=== PATIENT | female | born 1975 | race Caucasian/White ===

== ENCOUNTER 2016-12-20 18:54 | Observation (INO) | payer OTHER ==
[2016-12-20] MEDS ORDERED: ASPIRIN 81 MG PO STA (19:16)
[2016-12-20] MEDS ORDERED: SODIUM CHLORIDE 0.9% 1,000 ML IV STA (19:16)
[2016-12-20] MEDS ORDERED: NITROGLYCERIN SL TABS 0.4 MG TAB SUBLINGUAL STA ×3 (19:16)
--- NOTE | 2016-12-20 19:21 | ED ---
General Adult HPI - General Chief complaint: Chest Pain Stated complaint: Chest Pain Time Seen by Provider: 12/20/16 19:10 Source: patient, EMS, RN notes reviewed Mode of arrival: EMS Limitations: no limitations - History of Present Illness Initial comments: Patient is a pleasant 41-year-old female presenting to the emergency Department with chest discomfort. 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 Patient states she just started and was doing light exertion. Patient has tightness with radiation to the left arm. Discomfort is moderate to severe. Patient does feel somewhat short of breath. No nausea or diaphoresis. No history of similar symptoms previously. - Related Data Home Medications Medication Instructions Recorded Confirmed Acetaminophen Tab [Tylenol Tab] 325 - 650 mg PO Q4H PRN 12/20/16 12/20/16 Albuterol Inhaler [Ventolin Hfa 1 puff INHALATION RT-Q6H PRN 12/20/16 12/20/16 Inhaler] Allergies Allergy/AdvReac Type Severity Reaction Status Date / Time latex Allergy Rash/Hives Verified 12/20/16 19:17 Review of Systems ROS Statement: Those systems with pertinent positive or pertinent negative responses have been documented in the HPI. ROS Other: All systems not noted in ROS Statement are negative. Constitutional: Denies: fever Eyes: Denies: eye pain ENT: Denies: ear pain Respiratory: Reports: dyspnea. Denies: cough Cardiovascular: Reports: chest pain Endocrine: Denies: fatigue Gastrointestinal: Denies: abdominal pain Genitourinary: Denies: dysuria Musculoskeletal: Denies: back pain Skin: Denies: rash Neurological: Denies: headache, weakness Past Medical History Past Medical History: Asthma Additional Past Medical History / Comment(s): vertigo History of Any Multi-Drug Resistant Organisms: None Reported Past Surgical History: Hysterectomy, Orthopedic Surgery Additional Past Surgical History / Comment(s): right below elbow amputation, part of tailbone removed, three knee surgeries, teeth removed Past Psychological History: No Psychological Hx Reported Smoking Status: Current every day smoker Past Alcohol Use History: Rare Past Drug Use History: Marijuana General Exam Limitations: no limitations General appearance: alert, in no apparent distress Head exam: Present: atraumatic, normocephalic Eye exam: Present: normal appearance, PERRL, EOMI. Absent: nystagmus ENT exam: Present: normal oropharynx Neck exam: Present: normal inspection Respiratory exam: Present: normal lung sounds bilaterally, chest wall tenderness (Mild) Cardiovascular Exam: Present: regular rate, normal rhythm Expanded Peripheral pulses: 2+: Radial (L), Posterior Tibialis (R), Posterior Tibialis (L ) GI/Abdominal exam: Present: soft. Absent: tenderness Extremities exam: Present: other (Right arm below elbow amputation). Absent: calf tenderness Back exam: Present: normal inspection Neurological exam: Present: alert Psychiatric exam: Present: normal affect, normal mood Skin exam: Present: normal color Course Vital Signs 12/20/16 12/20/16 12/20/16 19:01 19:40 19:45 Temperature 98.3 F Pulse Rate 56 L 50 L 89 Respiratory 20 16 Rate Blood Pressure 101/61 93/56 106/57 O2 Sat by Pulse 99 98 98 Oximetry 12/20/16 20:25 Temperature Pulse Rate 52 L Respiratory 18 Rate Blood Pressure 111/58 O2 Sat by Pulse 100 Oximetry EKG Findings - EKG Comments: EKG Findings:: Sinus bradycardia 51. SD 104. QRS 98. QT 452. QTC 416. Right axis. Normal QRS. No acute ST change. Medical Decision Making - Medical Decision Making Patient reevaluated. Patient still complains of discomfort. Patient updated on results and plan. Patient will be tried on Ativan. If symptoms continue patient will be given a dose of morphine. Case discussed in detail with Dr. Jefferson, who will admit his patient, no consults at this time. - Lab Data Result diagrams: 12/20/16 19:00 12/20/16 19:00 Lab Results 12/20/16 12/20/16 12/20/16 Range/Units 19:00 19:00 19:00 WBC 9.3 (3.8-10.6) k/uL RBC 3.95 (3.80-5.40) m/uL Hgb 13.2 (11.4-16.0) gm/dL Hct 39.3 (34.0-46.0) % MCV 99.3 (80.0-100.0) fL MCH 33.4 (25.0-35.0) pg MCHC 33.7 (31.0-37.0) g/dL RDW 12.5 (11.5-15.5) % Plt Count 249 (150-450) k/uL Neutrophils % 67 % Lymphocytes % 29 % Monocytes % 2 % Eosinophils % 1 % Basophils % 0 % Neutrophils # 6.2 (1.3-7.7) k/uL Lymphocytes # 2.7 (1.0-4.8) k/uL Monocytes # 0.2 (0-1.0) k/uL Eosinophils # 0.1 (0-0.7) k/uL Basophils # 0.0 (0-0.2) k/uL PT (9.0-12.0) sec INR (<1.2) APTT (22.0-30.0) sec D-Dimer (<0.60) mg/L FEU Sodium 139 (137-145) mmol/L Potassium 3.6 (3.5-5.1) mmol/L Chloride 109 H (98-107) mmol/L Carbon Dioxide 20 L (22-30) mmol/L Anion Gap 10 mmol/L BUN 18 H (7-17) mg/dL Creatinine 0.50 L (0.52-1.04) mg/dL Est GFR (MDRD) Af Amer >60 (>60 ml/min/1.73 sqM) Est GFR (MDRD) Non-Af >60 (>60 ml/min/1.73 sqM) Glucose 82 (74-99) mg/dL Calcium 9.5 (8.4-10.2) mg/dL Magnesium 2.0 (1.6-2.3) mg/dL Total Bilirubin 1.0 (0.2-1.3) mg/dL AST 21 (14-36) U/L ALT 33 (9-52) U/L Alkaline Phosphatase 53 (38-126) U/L Total Creatine Kinase 103 (30-135) U/L CK-MB (CK-2) 2.3 (0.0-2.4) ng/mL CK-MB (CK-2) Rel Index 2.2 Troponin I <0.012 (0.000-0.034) ng/mL Total Protein 6.6 (6.3-8.2) g/dL Albumin 4.4 (3.5-5.0) g/dL 12/20/16 Range/Units 19:00 WBC (3.8-10.6) k/uL RBC (3.80-5.40) m/uL Hgb (11.4-16.0) gm/dL Hct (34.0-46.0) % MCV (80.0-100.0) fL MCH (25.0-35.0) pg MCHC (31.0-37.0) g/dL RDW (11.5-15.5) % Plt Count (150-450) k/uL Neutrophils % % Lymphocytes % % Monocytes % % Eosinophils % % Basophils % % Neutrophils # (1.3-7.7) k/uL Lymphocytes # (1.0-4.8) k/uL Monocytes # (0-1.0) k/uL Eosinophils # (0-0.7) k/uL Basophils # (0-0.2) k/uL PT 11.6 (9.0-12.0) sec INR 1.2 H (<1.2) APTT 25.5 (22.0-30.0) sec D-Dimer <0.17 (<0.60) mg/L FEU Sodium (137-145) mmol/L Potassium (3.5-5.1) mmol/L Chloride (98-107) mmol/L Carbon Dioxide (22-30) mmol/L Anion Gap mmol/L BUN (7-17) mg/dL Creatinine (0.52-1.04) mg/dL Est GFR (MDRD) Af Amer (>60 ml/min/1.73 sqM) Est GFR (MDRD) Non-Af (>60 ml/min/1.73 sqM) Glucose (74-99) mg/dL Calcium (8.4-10.2) mg/dL Magnesium (1.6-2.3) mg/dL Total Bilirubin (0.2-1.3) mg/dL AST (14-36) U/L ALT (9-52) U/L Alkaline Phosphatase (38-126) U/L Total Creatine Kinase (30-135) U/L CK-MB (CK-2) (0.0-2.4) ng/mL CK-MB (CK-2) Rel Index Troponin I (0.000-0.034) ng/mL Total Protein (6.3-8.2) g/dL Albumin (3.5-5.0) g/dL - Radiology Data Radiology results: image reviewed (Chest x-ray shows no acute process) Disposition Clinical Impression: Chest pain Disposition: ADMITTED IP TO THIS [facility] Referrals: Placido Jefferson MD [Primary Care Provider] - 1-2 days Decision Time: 20:53
[2016-12-20 19:44] LABS: Basophils % (A) 0 %; CH 32.6; Eosinophils # (A) 0.1 k/uL (0-0.7); Eosinophils % (A) 1 %; HCT 39.3 % (34.0-46.0); HGB 13.2 gm/dL (11.4-16.0); Luc # (Auto) 0.07; Luc % (Auto) 1; Lymphocytes # (A) 2.7 k/uL (1.0-4.8); Lymphocytes % (A) 29 %; MCH 33.4 pg (25.0-35.0); MCHC 33.7 g/dL (31.0-37.0); MCV 99.3 fL (80.0-100.0); Mean Platelet Volume 8.3; Monocytes # (A) 0.2 k/uL (0-1.0); Monocytes % (A) 2 %; Neutrophils # (A) 6.2 k/uL (1.3-7.7); Neutrophils % (A) 67 %; RBC 3.95 m/uL (3.80-5.40); RDW 12.5 % (11.5-15.5); WBC 9.3 k/uL (3.8-10.6); WBC (Perox) 9.75
[2016-12-20 19:54] LABS: ALT 33 U/L (9-52); AST 21 U/L (14-36); Alkaline Phosphatase 53 U/L (38-126); Anion Gap 10 mmol/L; Blood Urea Nitrogen 18 mg/dL (7-17); Calcium 9.5 mg/dL (8.4-10.2); Carbon Dioxide 20 mmol/L (22-30); Chloride 109 mmol/L (98-107); Glucose 82 mg/dL (74-99); Non-African American GFR(MDRD) >60 (>60 ml/min/1.73 sqM); Potassium 3.6 mmol/L (3.5-5.1); Sodium 139 mmol/L (137-145); Total Protein 6.6 g/dL (6.3-8.2)
[2016-12-20 19:55] LABS: INR 1.2 (<1.2); Partial Thromboplastin Time 25.5 sec (22.0-30.0); Prothrombin Time 11.6 sec (9.0-12.0)
[2016-12-20 19:59] LABS: Creatine Kinase 103 U/L (30-135)
--- NOTE | 2016-12-20 20:10 | XR ---
EXAMINATION TYPE: XR chest 2V DATE OF EXAM: 12/20/2016 COMPARISON: 08/13/2008 HISTORY: Chest pain TECHNIQUE: Frontal and lateral views of the chest are obtained. FINDINGS: Heart and mediastinum are normal. Lungs are clear. Diaphragm is normal. Bony thorax is int act. There are chest leads. IMPRESSION: Normal chest. No change.
[2016-12-20 20:12] LABS: Creatine Kinase MB 2.3 ng/mL (0.0-2.4); Troponin I <0.012 ng/mL (0.000-0.034)
[2016-12-20] MEDS ORDERED: LORazepam 2 MG/ML INJ IV STA (20:47)
[2016-12-20] MEDS ORDERED: NITROGLYCERIN SL TABS 0.4 MG TAB SUBLINGUAL PRN (20:53)
[2016-12-20 21:10] VITALS: RESP 16
[2016-12-20 21:46] VITALS: BMI 16.1
[2016-12-20] MEDS ORDERED: ALBUTEROL NEBULIZED 2.5 MG/3 ML INHALATION PRN (22:24)
[2016-12-20] MEDS: traMADol 50 MG TAB PO PRN (22:31)
[2016-12-21] MEDS: NITROGLYCERIN OINT 1 INCH/GM PACKET TOPICAL SCH ×3 (00:24→13:22)
[2016-12-21 02:39] LABS: Creatine Kinase 69 U/L (30-135)
[2016-12-21 02:50] LABS: Cholesterol 130 mg/dL (<200); HDL Cholesterol 61 mg/dL (40-60)
[2016-12-21 02:52] LABS: Creatine Kinase MB 1.4 ng/mL (0.0-2.4); Troponin I <0.012 ng/mL (0.000-0.034)
[2016-12-21] MEDS: traMADol 50 MG TAB PO PRN (06:06)
[2016-12-21] MEDS: ONDANSETRON 4 MG/2 ML VIAL IVP PRN ×2 (06:23→13:19)
[2016-12-21 07:56] LABS: Creatine Kinase 61 U/L (30-135)
[2016-12-21 08:01] VITALS: BP 81/50; PULSE 41; TEMP 97.8
[2016-12-21 08:09] LABS: Creatine Kinase MB 1.3 ng/mL (0.0-2.4); Troponin I <0.012 ng/mL (0.000-0.034)
[2016-12-21] MEDS ORDERED: ASPIRIN 325 MG TAB PO SCH (09:00)
--- NOTE | 2016-12-21 20:49 | HP ---
HISTORY AND PHYSICAL CHIEF COMPLAINT: Chest pain. HISTORY OF PRESENT ILLNESS: This is another admission for this 41-year-old white female. She presented to the emergency room with chest pain which was atypical. It was in the upper sternal area and it was tender. She had no fever, chills, cough, hemoptysis, diaphoresis, orthopnea, PND, etc. She did feel dizzy and "scared." Her left arm went "numb." She did become a little bit nauseated but did not throw up. Enzymes in the emergency room were normal as was the EKG. REVIEW OF SYSTEMS: Otherwise unremarkable. PAST MEDICAL HISTORY, FAMILY HISTORY AND PERSONAL AND SOCIAL HISTORY: Unremarkable and noncontributory otherwise except that she has had her right arm amputated in the mid forearm area. She has had a hysterectomy and procedure on the right knee as well as ovarian cystectomy. She has also had a procedure on her back. She does smoke. She is allergic to no medication and she is not current on any. PHYSICAL EXAM: Blood pressure is 138/86, pulse 80, respirations 16. She is afebrile. GENERAL: She , well-developed, well-nourished in no acute distress. Skin color is normal. Skin is warm, dry. Lymph nodes are not enlarged. Head ears, eyes, nose, mouth, and throat are normal. Neck veins distended. Thyroid not enlarged. Chest is clear. Cardiac exam is normal. The abdomen is soft, nontender. Extremities normal. She was tender over the sternum and the costochondral junctions. Neurologically she is intact. The right distal forearm and hand were missing. IMPRESSION: 1. Atypical chest pain. 2. Costochondritis. 3. Status post right forearm amputation. PLAN: 1. Bed rest. 2. IV fluids. 3. Serial EKGs and enzymes. MMODL / IJN: [id number] /
--- NOTE | 2016-12-22 08:58 | DS ---
DISCHARGE SUMMARY CHIEF COMPLAINT: Chest pain. HISTORY OF PRESENT ILLNESS AND PHYSICAL EXAMINATION: The details of this lady's history and physical can be found in the initial workup. LABORATORY STUDIES: While she was in the hospital she had laboratory studies, details of which can be found in the laboratory section of the chart. COURSE IN HOSPITAL: After admission, she was placed on bed rest, started on intravenous fluids, and she had serial EKGs and enzymes which were normal. It was felt that she could go home on the . She will be seen in the office in followup. She will have further studies done. FINAL DIAGNOSES: 1. Atypical chest pain. 2. Costochondritis. 3. Status post right forearm amputation. OPERATIONS: None. CONSULTATIONS: None. CONDITION: She is improved. MMODL / IJN: [id number] /
== END 2016-12-21 14:23 | disposition home or self-care (01) ==
LOC: EC 18:54 → 3OBS 20:54
PROVIDERS: ADMIT Family Medicine; ATTEND Family Medicine
DX: R07.89 Other chest pain (principal); M94.0 Chondrocostal junction syndrome [Tietze]; R20.0 Anesthesia of skin; R11.0 Nausea; R42 Dizziness and giddiness; J45.909 Unspecified asthma, uncomplicated; F17.200 Nicotine dependence, unspecified, uncomplicated; Z89.211 Acquired absence of right upper limb below elbow; Z91.040 Latex allergy status
CPT/HCPCS: 36415; 71020; 80053; 80061; 80306; 82550; 82553; 83735; 84484; 85025; 85379; 85610; 85730; 93005; 96361; 96374; 96375; 96376; 99285

== ENCOUNTER 2019-01-14 13:34 | Emergency (ER) | payer OTHER ==
[2019-01-14 13:49] VITALS: TEMP 97.6
[2019-01-14] MEDS ORDERED: ASPIRIN 81 MG PO STA (14:05)
[2019-01-14 14:41] LABS: Basophils # (A) 0.1 k/uL (0-0.2); Basophils % (A) 1 %; Eosinophils # (A) 0.1 k/uL (0-0.7); Eosinophils % (A) 1 %; HCT 43.3 % (34.0-46.0); HGB 14.3 gm/dL (11.4-16.0); Lymphocytes # (A) 2.2 k/uL (1.0-4.8); Lymphocytes % (A) 23 %; MCH 32.4 pg (25.0-35.0); MCV 98.1 fL (80.0-100.0); Mean Platelet Volume 7.6; Monocytes # (A) 0.2 k/uL (0-1.0); Monocytes % (A) 3 %; Neutrophils # (A) 6.7 k/uL (1.3-7.7); Neutrophils % (A) 71 %; Platelet Count 283 k/uL (150-450); RBC 4.41 m/uL (3.80-5.40); RDW 12.9 % (11.5-15.5); WBC 9.4 k/uL (3.8-10.6)
--- NOTE | 2019-01-14 14:58 | XR ---
EXAMINATION TYPE: XR chest 2V DATE OF EXAM: 01/14/2019 COMPARISON: 12/20/2016 HISTORY: Chest pain TECHNIQUE: Frontal and lateral views of the chest are obtained. FINDINGS: Heart and mediastinum are normal. Lungs are clear. Diaphragm is normal. Bony thorax is int act. There is mild pulmonary hyperinflation. IMPRESSION There is probably some COPD.. No change. No acute lung disease.
[2019-01-14 15:04] LABS: ALT 16 U/L (9-52); AST 16 U/L (14-36); African American GFR (CKD) >90 (>60 ml/min/1.73 sqM); Albumin 4.5 g/dL (3.5-5.0); Alkaline Phosphatase 66 U/L (38-126); Anion Gap 9 mmol/L; Blood Urea Nitrogen 13 mg/dL (7-17); Carbon Dioxide 21 mmol/L (22-30); Chloride 108 mmol/L (98-107); Glucose 102 mg/dL (74-99); Magnesium 1.9 mg/dL (1.6-2.3); Non-African American GFR(CKD) >90 (>60 ml/min/1.73 sqM); Sodium 138 mmol/L (137-145); Total Bilirubin 0.3 mg/dL (0.2-1.3); Total Protein 6.8 g/dL (6.3-8.2)
[2019-01-14 15:12] LABS: D-Dimer 0.21 mg/L FEU (<0.60); Partial Thromboplastin Time 26.8 sec (22.0-30.0); Prothrombin Time 10.6 sec (9.0-12.0)
[2019-01-14 15:26] VITALS: RESP 16
[2019-01-14] MEDS ORDERED: KETOROLAC 30 MG/ML 1 ML VIAL IVP STA (15:55)
--- NOTE | 2019-01-14 16:01 | ED ---
Chest Pain HPI <Andrea Fonseca - Last Filed: 01/14/19 18:16> - General Source: patient, RN notes reviewed Mode of arrival: wheelchair Limitations: no limitations <Zeferino Blair - Last Filed: 01/15/19 06:04> - General Chief Complaint: Chest Pain Stated Complaint: Chest pain Time Seen by Provider: 01/14/19 14:00 - History of Present Illness Initial Comments: 43-year-old female presented emergency department complaining of some chest discomfort. Patient states symptoms started yesterday. She states that the symptoms have come and gone. She did have a repeat episode today. Patient states hurts when she presses on her chest and has pain when she takes deep inspiration. Patient has no prior cardiac disease denies any history of hypertension, lipidemia, diabetes. She states she has some distant relatives a family heart disease. Patient has no complaints of nausea, vomiting diarrhea constipation patient denies any diaphoretic episodes. Patient states that because of pain she became very anxious and which she knows that she has very high anxiety. (Zeferino Blair) - Related Data Home Medications Medication Instructions Recorded Confirmed No Known Home Medications 01/14/19 01/14/19 Allergies Allergy/AdvReac Type Severity Reaction Status Date / Time latex Allergy Rash/Hives Verified 01/14/19 16:25 adhesive AdvReac Unknown Verified 01/14/19 16:25 Review of Systems ROS Other: All systems not noted in ROS Statement are negative. <Andrea Fonseca - Last Filed: 01/14/19 18:16> ROS Other: All systems not noted in ROS Statement are negative. <Zeferino Blair - Last Filed: 01/15/19 06:04> ROS Statement: Those systems with pertinent positive or pertinent negative responses have been documented in the HPI. EKG Findings - EKG Comments: EKG Findings:: EKG performed at 2:05 normal sinus rhythm rate of 61 DE 114 QRS 94 QT/QTC 404/406 <Zeferino Blair - Last Filed: 01/15/19 06:04> Past Medical History Past Medical History: Asthma Additional Past Medical History / Comment(s): vertigo History of Any Multi-Drug Resistant Organisms: None Reported Past Surgical History: Hysterectomy, Orthopedic Surgery Additional Past Surgical History / Comment(s): right below elbow amputation, part of tailbone removed, three knee surgeries, teeth removed Past Anesthesia/Blood Transfusion Reactions: Previous Problems w/ Anesthesia Additional Past Anesthesia/Blood Transfusion Reaction / Comment(s): Wakes up during surgery. Needs extra meds to stay down. Past Psychological History: Anxiety Smoking Status: Current every day smoker Past Alcohol Use History: Occasional Past Drug Use History: Marijuana - Past Family History Mother Family Medical History: Asthma, COPD Additional Family Medical History / Comment(s): Scolosis Father Family Medical History: No Reported History <Zeferino Blair Last Filed: 01/15/19 06:04> General Exam Limitations: no limitations General appearance: alert, in no apparent distress, anxious Head exam: Present: atraumatic, normocephalic, normal inspection Eye exam: Present: normal appearance, PERRL, EOMI. Absent: scleral icterus, conjunctival injection, periorbital swelling ENT exam: Present: normal exam, mucous membranes moist Neck exam: Present: normal inspection. Absent: tenderness, meningismus, lymphadenopathy Respiratory exam: Present: normal lung sounds bilaterally, chest wall tenderness, other (Patient is very anxious, tachypneic). Absent: respiratory distress, wheezes, rales, rhonchi, stridor Cardiovascular Exam: Present: regular rate, normal rhythm, normal heart sounds. Absent: systolic murmur, diastolic murmur, rubs, gallop, clicks GI/Abdominal exam: Present: soft, normal bowel sounds. Absent: distended, tenderness, guarding, rebound, rigid Back exam: Absent: CVA tenderness (R), CVA tenderness (L) Psychiatric exam: Present: anxious <Zeferino Blair Last Filed: 01/15/19 06:04> Course Vital Signs 01/14/19 01/14/19 01/14/19 13:45 13:49 15:25 Temperature 97.6 F Pulse Rate 66 89 Pulse Rate [ 102 H [employer]cycle [employer] ] Respiratory 26 H 16 Rate Blood Pressure 115/73 113/69 O2 Sat by Pulse 99 97 Oximetry 01/14/19 01/14/19 17:00 18:00 Temperature 97.6 F Pulse Rate 48 L 52 L Pulse Rate [ [employer] ] Respiratory 16 16 Rate Blood Pressure 121/65 O2 Sat by Pulse 98 Oximetry Chest Pain MDM <Zeferino Blair - Last Filed: 01/15/19 06:04> - [facility] Patient's EKG shows no acute changes, chest x-rays unremarkable initial set of labs are unremarkable including deep negative d-dimer, negative troponin. Patient's symptoms are reproducible, patient has less anxious. Patient had second troponin ordered at this time. Patient was signed out to Dr. Fonseca who will make final disposition (Zeferino Blair) Disposition Time of Disposition: 18:16 <Andrea Fonseca - Last Filed: 01/14/19 18:16> Is patient prescribed a controlled substance at d/c from ED?: No <Zeferino Blair - Last Filed: 01/15/19 06:04> Clinical Impression: Chest pain Disposition: HOME SELF-CARE Instructions (If sedation given, give patient instructions): Chest Pain (ED) Referrals: Placido Jefferson MD [Primary Care Provider] - 1-2 days
[2019-01-14 18:20] VITALS: BP 121/65; PULSE 52
== END 2019-01-14 18:30 | disposition home or self-care (01) ==
LOC: EC 13:34
DX: R07.89 Other chest pain (principal); R06.82 Tachypnea, not elsewhere classified; F17.200 Nicotine dependence, unspecified, uncomplicated; Z91.040 Latex allergy status; Z91.048 Other nonmedicinal substance allergy status; Z89.211 Acquired absence of right upper limb below elbow
CPT/HCPCS: 36415; 93005; 85379; 83880; 80053; 83690; 83735; 84484; 85025; 85610; 85730; 71046; 99285; 96374; J1885

== ENCOUNTER 2020-11-04 10:01 | Observation (INO) | payer OTHER ==
[2020-11-04] MEDS ORDERED: SODIUM CHLORIDE 0.9% 1,000 ML IV STA (10:45)
[2020-11-04] MEDS ORDERED: MECLIZINE 12.5 MG TAB PO STA (10:49)
[2020-11-04] MEDS ORDERED: ONDANSETRON 4 MG/2 ML VIAL IVP STA (10:49)
--- NOTE | 2020-11-04 10:51 | ED ---
General Adult HPI - General Chief complaint: Dizziness Stated complaint: seizure, dizziness Time Seen by Provider: 11/04/20 10:17 Source: patient Mode of arrival: ambulatory Limitations: no limitations - History of Present Illness Initial comments: 45-year-old female with a past medical history of seizure disorder not on any medications, vertigo, asthma, hysterectomy presents to the emergency room for a chief complaint of not feeling well. Patient states that she has had seizures for about 3 years now. She reports that all her testing showed no seizures so they did not start any medications. Patient reports last night she had some dizziness as in the room spinning but also associated with lightheadedness. [place] like she was going to pass out. She also had a seizure. Patient states that the light headedness has persisted since yesterday evening. Patient states the room is spinning in making her nauseous. Patient denies any associated chest pain. Patient denies being told she had a history of low heart rate.Patient has no other complaints at this time including shortness of breath, chest pain, abdominal pain, nausea or vomiting, headache, or visual changes. - Related Data Home Medications Medication Instructions Recorded Confirmed Ibuprofen [Motrin Ib] 1,800 mg PO Q8H PRN 11/04/20 11/04/20 Allergies Allergy/AdvReac Type Severity Reaction Status Date / Time latex Allergy Rash/Hives Verified 11/04/20 11:09 adhesive AdvReac Unknown Verified 11/04/20 11:09 Review of Systems ROS Statement: Those systems with pertinent positive or pertinent negative responses have been documented in the HPI. ROS Other: All systems not noted in ROS Statement are negative. Past Medical History Past Medical History: Asthma, Seizure Disorder Additional Past Medical History / Comment(s): vertigo History of Any Multi-Drug Resistant Organisms: None Reported Past Surgical History: Hysterectomy, Orthopedic Surgery Additional Past Surgical History / Comment(s): right below elbow amputation, part of tailbone removed, three knee surgeries, teeth removed Past Anesthesia/Blood Transfusion Reactions: Previous Problems w/ Anesthesia Additional Past Anesthesia/Blood Transfusion Reaction / Comment(s): Wakes up during surgery. Needs extra meds to stay down. Past Psychological History: Anxiety Smoking Status: Current every day smoker Past Alcohol Use History: Occasional Past Drug Use History: Marijuana - Past Family History Mother Family Medical History: Asthma, COPD Additional Family Medical History / Comment(s): Scolosis Father Family Medical History: No Reported History General Exam Limitations: no limitations General appearance: alert, in no apparent distress Head exam: Present: atraumatic, normocephalic, normal inspection Eye exam: Present: normal appearance, PERRL, EOMI. Absent: scleral icterus, conjunctival injection, periorbital swelling ENT exam: Present: normal exam, mucous membranes moist Neck exam: Present: normal inspection, full ROM Respiratory exam: Present: normal lung sounds bilaterally. Absent: respiratory distress, wheezes, rales, rhonchi, stridor Cardiovascular Exam: Present: regular rate, normal rhythm, normal heart sounds. Absent: systolic murmur, diastolic murmur, rubs, gallop, clicks Neurological exam: Present: alert, oriented X3, normal gait, other (GCS 15) Course Vital Signs 11/04/20 11/04/20 10:02 11:30 Temperature 98 F Pulse Rate 48 L 44 L Respiratory 18 18 Rate Blood Pressure 120/65 139/80 O2 Sat by Pulse 98 99 Oximetry EKG Findings - EKG Comments: EKG Findings:: Sinus bradycardia, ventricular rate 43, UT interval 122, QTC 392. EKG 1136: Ventricular rate 43, UT interval 122, QTC 420, sinus bradycardia Medical Decision Making - Medical Decision Making Vitals are stable however patient does have mild tachycardia with a ventricular rate in the 40s. On previous visits her heart rate has been bradycardic as well. CBC and CMP today is unremarkable. Troponin negative. Patient did develop some chest tightness during her stay. Repeat EKG is nonischemic. It is possible the dizziness and lightheadedness was associated with her seizure however she developed chest tightness and pressure today in the emergency room and is bradycardic. Case discussed with Dr. Jefferson, does request admission and cardiology consultation. Patient has previously had seizure workup outpatient which was negative. - Lab Data Result diagrams: 11/04/20 10:56 11/04/20 10:56 Lab Results 11/04/20 11/04/20 11/04/20 Range/Units 10:56 10:56 10:56 WBC 6.6 (3.8-10.6) k/uL RBC 3.98 (3.80-5.40) m/uL Hgb 13.4 (11.4-16.0) gm/dL Hct 39.1 (34.0-46.0) % MCV 98.4 (80.0-100.0) fL MCH 33.6 (25.0-35.0) pg MCHC 34.1 (31.0-37.0) g/dL RDW 12.7 (11.5-15.5) % Plt Count 252 (150-450) k/uL MPV 8.3 Neutrophils % 70 % Lymphocytes % 23 % Monocytes % 3 % Eosinophils % 3 % Basophils % 1 % Neutrophils # 4.6 (1.3-7.7) k/uL Lymphocytes # 1.5 (1.0-4.8) k/uL Monocytes # 0.2 (0-1.0) k/uL Eosinophils # 0.2 (0-0.7) k/uL Basophils # 0.1 (0-0.2) k/uL PT 10.7 (9.0-12.0) sec INR 1.0 (<1.2) APTT 25.1 (22.0-30.0) sec Sodium 138 (137-145) mmol/L Potassium 3.7 (3.5-5.1) mmol/L Chloride 110 H (98-107) mmol/L Carbon Dioxide 21 L (22-30) mmol/L Anion Gap 7 mmol/L BUN 16 (7-17) mg/dL Creatinine 0.40 L (0.52-1.04) mg/dL Est GFR (CKD-EPI)AfAm >90 (>60 ml/min/1.73 sqM) Est GFR (CKD-EPI)NonAf >90 (>60 ml/min/1.73 sqM) Glucose 97 (74-99) mg/dL Calcium 9.5 (8.4-10.2) mg/dL Total Bilirubin 0.5 (0.2-1.3) mg/dL AST 19 (14-36) U/L ALT 10 (4-34) U/L Alkaline Phosphatase 54 (38-126) U/L Troponin I (0.000-0.034) ng/mL Total Protein 6.1 L (6.3-8.2) g/dL Albumin 4.0 (3.5-5.0) g/dL 11/04/20 Range/Units 10:56 WBC (3.8-10.6) k/uL RBC (3.80-5.40) m/uL Hgb (11.4-16.0) gm/dL Hct (34.0-46.0) % MCV (80.0-100.0) fL MCH (25.0-35.0) pg MCHC (31.0-37.0) g/dL RDW (11.5-15.5) % Plt Count (150-450) k/uL MPV Neutrophils % % Lymphocytes % % Monocytes % % Eosinophils % % Basophils % % Neutrophils # (1.3-7.7) k/uL Lymphocytes # (1.0-4.8) k/uL Monocytes # (0-1.0) k/uL Eosinophils # (0-0.7) k/uL Basophils # (0-0.2) k/uL PT (9.0-12.0) sec INR (<1.2) APTT (22.0-30.0) sec Sodium (137-145) mmol/L Potassium (3.5-5.1) mmol/L Chloride (98-107) mmol/L Carbon Dioxide (22-30) mmol/L Anion Gap mmol/L BUN (7-17) mg/dL Creatinine (0.52-1.04) mg/dL Est GFR (CKD-EPI)AfAm (>60 ml/min/1.73 sqM) Est GFR (CKD-EPI)NonAf (>60 ml/min/1.73 sqM) Glucose (74-99) mg/dL Calcium (8.4-10.2) mg/dL Total Bilirubin (0.2-1.3) mg/dL AST (14-36) U/L ALT (4-34) U/L Alkaline Phosphatase (38-126) U/L Troponin I <0.012 (0.000-0.034) ng/mL Total Protein (6.3-8.2) g/dL Albumin (3.5-5.0) g/dL Disposition Clinical Impression: Light headedness, Chest pain, Bradycardia Disposition: ADMITTED IP TO THIS [facility] Condition: Good Is patient prescribed a controlled substance at d/c from ED?: No Referrals: Placido Jefferson MD [Primary Care Provider] - 1-2 days Time of Disposition: 13:50
[2020-11-04 11:19] LABS: Basophils # (A) 0.1 k/uL (0-0.2); Basophils % (A) 1 %; Eosinophils # (A) 0.2 k/uL (0-0.7); Eosinophils % (A) 3 %; HCT 39.1 % (34.0-46.0); HGB 13.4 gm/dL (11.4-16.0); Lymphocytes # (A) 1.5 k/uL (1.0-4.8); Lymphocytes % (A) 23 %; MCH 33.6 pg (25.0-35.0); MCHC 34.1 g/dL (31.0-37.0); MCV 98.4 fL (80.0-100.0); Mean Platelet Volume 8.3; Monocytes # (A) 0.2 k/uL (0-1.0); Monocytes % (A) 3 %; Neutrophils # (A) 4.6 k/uL (1.3-7.7); Neutrophils % (A) 70 %; Platelet Count 252 k/uL (150-450); RBC 3.98 m/uL (3.80-5.40); RDW 12.7 % (11.5-15.5); WBC 6.6 k/uL (3.8-10.6)
[2020-11-04 11:31] LABS: ALT 10 U/L (4-34); AST 19 U/L (14-36); African American GFR (CKD) >90 (>60 ml/min/1.73 sqM); Alkaline Phosphatase 54 U/L (38-126); Anion Gap 7 mmol/L; Blood Urea Nitrogen 16 mg/dL (7-17); Calcium 9.5 mg/dL (8.4-10.2); Carbon Dioxide 21 mmol/L (22-30); Chloride 110 mmol/L (98-107); Glucose 97 mg/dL (74-99); Non-African American GFR(CKD) >90 (>60 ml/min/1.73 sqM); Potassium 3.7 mmol/L (3.5-5.1); Sodium 138 mmol/L (137-145); Total Bilirubin 0.5 mg/dL (0.2-1.3); Total Protein 6.1 g/dL (6.3-8.2)
[2020-11-04 11:32] LABS: Partial Thromboplastin Time 25.1 sec (22.0-30.0); Prothrombin Time 10.7 sec (9.0-12.0)
--- NOTE | 2020-11-04 12:19 | XR ---
EXAMINATION TYPE: XR chest 2V DATE OF EXAM: 11/04/2020 COMPARISON: 01/14/2019 INDICATION: Dizziness, syncope TECHNIQUE: Frontal and lateral views of the chest are obtained. FINDINGS: The heart size is normal. The pulmonary vasculature is normal. The lungs are clear. IMPRESSION: 1. No acute pulmonary process.
[2020-11-04] MEDS ORDERED: ASPIRIN 81 MG PO STA (13:50)
[2020-11-04] MEDS ORDERED: ONDANSETRON 4 MG/2 ML VIAL IVP PRN (18:00)
[2020-11-05] MEDS ORDERED: ASPIRIN 325 MG TAB PO SCH (09:00)
--- NOTE | 2020-11-05 09:17 | P.CRDCN ---
History of Present Illness History of present illness: HISTORY OF PRESENTING ILLNESS This is a pleasant 45-year-old female past medical history significant for asthma, seizure disorder she states for 2 years, vertigo, chronic nicotine dependence, daily marijuna use, and etoh use, and acid reflux. 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 We have been asked to see in consultation for chest pain, sinus bradycardia and pre-syncope. Patient is seen and examined at bedside. Patient reports on Friday 11/03 night she was standing in the ba throom, she felt a onset of "feeling warm" dizziness, and some shakiness in her hands, she knew she may have a seizure as this is sometimes her warning sign. She describes the whole room as spinning. She proceeded to sit down, she felt lightheaded as if she may pass out. She states she does not remember what happened after this. She is unable to say if she passed out or not, she denies being found on the ground on Wednesday. However, these episodes of happened before, she states sometimes her son finds her on the ground. She states sometimes her lightheadedness and dizziness lasts for 36-48 hours. Patient states that the lightheadedness has persisted since that time yesterday and decided to present to the emergency department. She also states she has intermittent episodes of left sided sharp/heavy chest pain. It is non-radiating, non-exertional. She has associated shortness of breath, diaphoresis, and nausea. She states she has a history of acid reflux but this felt different. She cant specifically say how often she gets this pain, it comes and goes. She denies history of [place], stroke, diabetes, dyslipidemia. She has a family history mother having seizures and heart disease (unknown details). She states she drinks alcohol about 3 times a week and when she does she states she does drink heavy and late at night. Her last night of drinking was Wednesday night. She does not follow with a neurologist. She states she has had a workup for her seizures in the past in terms of EEG and those have been negative. She staes she currently does not take medication DIAGNOSTICS EKG reveals sinus bradycardia, heart rate 43, no significant STT wave abnormalities. Poor R wave progression. Prior EKG in 2019 appear similar patient had sinus bradycardia, heart rate 45, poor R wave progression, no significant ST-T wave abnormalities. Telemetry tracings indicate sinus bradycardia HR 45-50s, occasionally low 38 overnight while sleeping. Chest xray no acute cardiopulmonary process. Laboratory reviewed, WBC 6.6, hemoglobin 13.4, platelets 252, sodium 138, potassium 3.5, BUN 16, serum creatinine 0.4, troponin negative 3 Patient's home medications include PRN ibuprofen REVIEW OF SYSTEMS At the time of my exam: CONSTITUTIONAL: Denies fever or chills. CARDIOVASCULAR: + chest pain, +shortness of breath, Denies orthopnea, PND or palpitations. RESPIRATORY: Denies cough. GASTROINTESTINAL: Denies abdominal pain, diarrhea, constipation, nausea or vomiting. MUSCULOSKELETAL: Denies myalgias. NEUROLOGIC: +dizziness, lightheadedness +history of seizures +syncope, Denies numbness, tingling, headacbe or weakness. ENDOCRINE: Denies fatigue, weight change, polydipsia or polyurina. GENITOURINARY: Denies burning, hematuria or urgency with micturation. HEMATOLOGIC: Denies history of anemia or bleeding. PHYSICAL EXAMINATION Blood pressure 139/80 heart rate 44 afebrile and maintaining oxygen saturation on room air CONSTITUTIONAL: No apparent distress. HEENT: Head is normocephalic. Pupils are equal, round. Sclerae anicteric. Mucous membranes of the mouth are moist. No JVD. No carotid bruit. CHEST EXAMINATION: Lungs are clear to auscultation. No chest wall tenderness is noted on palpation or with deep breathing. HEART EXAMINATION: Regular rate and rhythm. S1, S2 heard. No murmurs, gallops or rub. ABDOMEN: Soft, nontender. Positive bowel sounds. EXTREMITIES: 2+ peripheral pulses, no lower extremity edema and no calf tenderness. Right forearm amputation. SKIN: intact NEUROLOGIC EXAMINATION: Patient is awake, alert and oriented x3. ASSESSMENT Chest pain, atypical acute coronary event has been ruled out with no EKG evidence of ischemia and negative cardiac enzymes. Sinus bradycardia Dizziness, lightheadedness, presyncope Syncope History of seizures History of vertigo Chronic nicotine dependence Daily marijuana use ETOH use PLAN An acute coronary event has been ruled out with no EKG evidence of ischemia and negative cardiac enzymes. Obtain 2D echocardiogram and doppler study to assess cardiac structure and function. Perform stress echo test to assess for stress induced cardiac ischemia. Event monitor prior to discharge If echocardiogram no acute findings and stress echo test no evidence of ischemia. Ok to discharge from a cardiology perspective after event monitor is placed, and patient to follow up closely with Dr. Martinez. Smoking cessation discussed and highly recommended. Follow up with Dr. Martinez Thank you kindly for this consultation. Nurse Practitioner note has been reviewed, I agree with a documented findings and plan of care. Patient was seen and examined. Past Medical History Past Medical History: Asthma, Seizure Disorder Additional Past Medical History / Comment(s): vertigo History of Any Multi-Drug Resistant Organisms: None Reported Past Surgical History: Hysterectomy, Orthopedic Surgery Additional Past Surgical History / Comment(s): right below elbow amputation, part of tailbone removed, three knee surgeries, teeth removed Past Anesthesia/Blood Transfusion Reactions: Previous Problems w/ Anesthesia Additional Past Anesthesia/Blood Transfusion Reaction / Comment(s): Wakes up during surgery. Needs extra meds to stay down. Past Psychological History: Anxiety Smoking Status: Current every day smoker Past Alcohol Use History: Occasional Past Drug Use History: Marijuana - Past Family History Mother Family Medical History: Asthma, COPD Additional Family Medical History / Comment(s): Scolosis Father Family Medical History: No Reported History Medications and Allergies Home Medications Medication Instructions Recorded Confirmed Type Ibuprofen [Motrin Ib] 1,800 mg PO Q8H PRN 11/04/20 11/04/20 History Allergies Allergy/AdvReac Type Severity Reaction Status Date / Time latex Allergy Rash/Hives Verified 11/04/20 11:09 adhesive AdvReac Unknown Verified 11/04/20 11:09 Physical Exam Vitals: Vital Signs Temp Pulse Resp BP Pulse Ox 11/04/20 11:30 44 L 18 139/80 99 11/04/20 10:02 98 F 48 L 18 120/65 98 Intake and Output 11/03/20 11/04/20 11/04/20 22:59 06:59 14:59 Other: Weight 47.174 kg Results 11/04/20 10:56 11/04/20 10:56 Cardiac Enzymes 11/04/20 11/04/20 Range/Units 10:56 10:56 AST 19 (14-36) U/L Troponin I <0.012 (0.000-0.034) ng/mL Coagulation 11/04/20 Range/Units 10:56 PT 10.7 (9.0-12.0) sec APTT 25.1 (22.0-30.0) sec CBC 11/04/20 Range/Units 10:56 WBC 6.6 (3.8-10.6) k/uL RBC 3.98 (3.80-5.40) m/uL Hgb 13.4 (11.4-16.0) gm/dL Hct 39.1 (34.0-46.0) % Plt Count 252 (150-450) k/uL Comprehensive Metabolic Panel 11/04/20 Range/Units 10:56 Sodium 138 (137-145) mmol/L Potassium 3.7 (3.5-5.1) mmol/L Chloride 110 H (98-107) mmol/L Carbon Dioxide 21 L (22-30) mmol/L BUN 16 (7-17) mg/dL Creatinine 0.40 L (0.52-1.04) mg/dL Glucose 97 (74-99) mg/dL Calcium 9.5 (8.4-10.2) mg/dL AST 19 (14-36) U/L ALT 10 (4-34) U/L Alkaline Phosphatase 54 (38-126) U/L Total Protein 6.1 L (6.3-8.2) g/dL Albumin 4.0 (3.5-5.0) g/dL Current Medications Generic Name Dose Route Start Last Admin Trade Name Jayceq PRN Reason Stop Dose Admin Aspirin 325 mg 11/05/20 09:00 Aspirin 325 Mg Tab PO DAILY EVETTE Intake and Output 11/03/20 11/04/20 11/04/20 22:59 06:59 14:59 Other: Weight 47.174 kg Patient Weight 11/05/20 06:59 Weight 47.174 kg 11/04/20 10:56 11/04/20 10:56
--- NOTE | 2020-11-05 10:24 | P.STRESS ---
- Stress Test Note Stress Test Results/Findings: Exam Performed: stress echo exercise Exam Date: 11/05/20 Reason for Exam: Height: 5 ft 4 in Weight: 47.174 kg Protocol: QUIANA Stage: 4 Duration of Exercise: 10:20 MIN Resting Heart Rate: 42 Resting Blood Pressure: 121/86 Maximum Achieved Heart Rate: 154 Maximum Achieved Blood Pressure: 132/62 85% PMHR: 150 100% PMHR: 176 METS: Technologist Comment: Stress Test Results/Findings: Patient underwent exercise stress echo with a Quiana protocol treadmill stress test. Patient exercised into Stage 4 for a total of 10 minutes 20 seconds. Patient's maximum heart rate was 154 which represented 88 % age-predicted maximum heart rate. Stress EKG portion: At baseline patient's EKG showed sinus bradycardia, no significant ST or T-wave abnormalities. At peak exercise, EKG showed nondiagnostic 0.[address] depressions in the anterolateral leads and no other significant abnormalities. Stress echo portion: 2-D echocardiogram was performed in the parasternal long, personal short, apical 2 and apical four-chamber views at rest, peak exercise and in recovery. At baseline, echocardiogram showed left ventricular ejection fraction 55% without wall motion abnormalities. With peak exercise, echocardiogram shows improvement in left ventricular ejection fraction, increase contractility, decrease in left ventricular dimension without wall motion abnormalities consistent with a normal response to exercise. Conclusions: 1. Normal EKG and echo response to exercise without evidence of inducible ischemia. 2. Excellent exercise capacity. 3. Normal left ventricular ejection fraction 55%
[2020-11-05 11:20] VITALS: BMI 17.8
[2020-11-05 12:54] LABS: Chol/HDL Ratio 2.14; LDL Cholesterol,Calculated 54.2 mg/dL (0.0-131.0); VLDL Calculation 10.8 mg/dL (5.00-40.00)
--- NOTE | 2020-11-05 13:14 | P.CNNES ---
History of Present Illness Consult date: 11/05/20 Requesting physician: Placido Jefferson Reason for Consult: Seizure? History of Present Illness: Patient is a 45-year-old female came to the hospital yesterday at 10:01 AM, for possible seizure. Patient has a past medical history of seizure disorder, currently not on any medication. Patient states that her seizures started slightly over 2 years ago after her . She states that she gets seizure randomly, the last seizure was 6 months ago. Patient states that yesterday she was getting ready to go to work, went to the bathroom and then got dizzy and then does not remember what happened, and she woke up on the floor. She says that she has bitten her tongue in the past with a seizure, but not this time. She has never lost control of urine. Patient states that she is stressed all the time since her , but does not believe her seizures are related to the stress. Patient states that she gets seizures about 5 times a year, although she was doing well and had no seizure for the last 6 months. Patient states that no neurologist can prove her seizures, therefore she was never placed on seizure medication. She is not on any seizure medication does not follow with a neurologist. Patient states her mother has seizures every day, but does not know if she is taking medication, as she "does not talk to her mother". Denies any history of concussion or head injury. Patient has history of right above wrist hand amputation, but elected not to disclose the cause or when it happened. Patient had seizures for about 3 years. All the testing had been negative therefore she was not placed on medication. Vital signs on arrival blood pressure 120/65 pulse rate 48 temperature 98.0. Chest x-ray showed no acute process. Patient's previous computed tomography scan of head from 07/10/2015 was normal. It was performed for "vertigo". EKG with marked sinus bradycardia with heart rate 43. CBC is normal PT/PTT normal, Chem-7 is normal. Liver panel normal. Troponin negative. Patient also has history of vertigo, asthma. Patient has smoked 1-1/2 pack per day for 15 years. She has been smoking and drinking since age 16. Also drinks alcohol 3-4 days a week and when she does, and drinks "a lot". However she does not consider herself an alcoholic, as patient states "alcoholics drinks every day all day.". She smokes marijuana every day all day. No history of drug use. Review of Systems Stress, pain in the left wrist. Denies shortness of breath wheezing or cough. Denies any abdominal pain nausea vomiting diarrhea. Denies any rash, fever or chills. Patient does not cooperate with discussing rest of the review of systems. She just wants to focus on her "brain and seizure", nothing else. Past Medical History Past Medical History: Asthma, Seizure Disorder Additional Past Medical History / Comment(s): vertigo History of Any Multi-Drug Resistant Organisms: None Reported Past Surgical History: Hysterectomy, Orthopedic Surgery Additional Past Surgical History / Comment(s): right below elbow amputation, part of tailbone removed, three knee surgeries, teeth removed Past Anesthesia/Blood Transfusion Reactions: Previous Problems w/ Anesthesia Additional Past Anesthesia/Blood Transfusion Reaction / Comment(s): Wakes up during surgery. Needs extra meds to stay down. Past Psychological History: Anxiety Smoking Status: Current every day smoker Past Alcohol Use History: Occasional Past Drug Use History: Marijuana - Past Family History Mother Family Medical History: Asthma, COPD Additional Family Medical History / Comment(s): Scolosis Father Family Medical History: No Reported History Medications and Allergies Home Medications Medication Instructions Recorded Confirmed Type Ibuprofen [Motrin Ib] 1,800 mg PO Q8H PRN 11/04/20 11/04/20 History Allergies Allergy/AdvReac Type Severity Reaction Status Date / Time latex Allergy Rash/Hives Verified 11/04/20 11:09 adhesive AdvReac Unknown Verified 11/04/20 11:09 Physical Examination - Vital Signs Vital Signs: Vital Signs Temp Pulse Pulse Pulse Resp BP BP 11/05/20 08:00 15 11/05/20 07:00 98 F 40 L 15 104/66 11/05/20 02:00 47 L 50 L 11/05/20 01:13 98.1 F 50 L 16 106/62 11/04/20 20:00 48 L 18 11/04/20 19:15 98.3 F 48 L 16 98/58 11/04/20 15:17 46 L 18 132/76 11/04/20 15:00 97.9 F 47 L 16 108/67 Pulse Ox 11/05/20 08:00 08/10/21 07:00 98 11/05/20 02:00 11/05/20 01:13 98 11/04/20 20:00 11/04/20 19:15 100 11/04/20 15:17 98 11/04/20 15:00 98 Intake and Output 11/04/20 11/05/20 11/05/20 22:59 06:59 14:59 Intake Total 350 Balance 350 Intake: Oral 350 Other: Voiding Method Toilet Toilet # Voids 1 3 Weight 47.174 kg Patient is a middle aged female, in no acute distress. Patient was pleasant as I entered the room, saying "tired all the time for some reason". However as the history and examination progressed, she became very edgy, upset easily, mumbling some foul words like "st---- -------ers". Patient is alert awake oriented to time place and person. Speech and language functions are normal. Attention, concentration and fund of knowledge is adequate. On cranial examination, pupils are round and reacting to light, visual massey are full on confrontation, extraocular muscles are intact with no nystagmus. Face is symmetric, tongue protrudes to the midline. Palatal elevation and sensation normal, hearing and shoulder shrug normal, facial sensation normal. On muscle strength testing, there is no pronator drift on the left, patient did not elect to have been check the right upper extremity, which has above wrist amputation. Her strength is normal in left arm distally and proximally. Patient states she has surgery on the wrist, therefore would not let me examine her hand. Her strength is normal in the lower extremities bilaterally. Patient would frequently mumble, and gets upset with any question asked again for almost every step of examination. Deep tendon reflexes a1+ to 2 in the left upper and lower limbs. Plantars downgoing. Sensory to touch is equal with no neglect. Cerebellar function showed no ataxia for [id number] testing on the left . Tone and bulk of muscles normal. did not examine her right upper limb. Gait patient states is normal. On general examination, there is no carotid bruit or murmur, S1-S2 audible. Abdomen is soft nontender. Chest is clear. Peripheral pulses are present. No edema. Results - Laboratory Findings CBC and BMP: 11/04/20 10:56 11/04/20 10:56 Abnormal Lab Findings: Abnormal Labs 11/04/20 10:56 Chloride 110 H Carbon Dioxide 21 L Creatinine 0.40 L Total Protein 6.1 L Assessment and Plan Assessment: * Possible seizure disorder, rule out epileptic versus nonepileptic seizure. * Multiple stressors * Reports bipolar disorder, currently not being treated. Plan: * Patient has possible seizure disorder, uncertain if epileptic, psychogenic nonepileptic (PNES), or related to her history of alcoholism. Patient states that she does drink "a lot" about 3-4 times a week, but does not consider her an alcoholic. Patient is undergoing EEG testing. I would consider placing her on Lamictal, which is also a mood stabilizer and also works for seizure disorder. Patient was informed of possible side effects including rash, in which case she should stop the medication. * Suggest psychiatric consultation to address her mood and stresses. Patient is currently not being treated for psychiatric condition. * Suggest patient no driving for 6 months unless seizure free, climbing ladders, operating dangerous machinery or unsupervised swimming.
[2020-11-05 14:46] VITALS: PULSE 47; RESP 16
--- NOTE | 2020-11-05 18:49 | EEG ---
ELECTROENCEPHALOGRAM REPORT DATE OF SERVICE: 11/05/2020 PREAMBLE: This is a 45-year-old female with history of possible seizure disorder. This study is performed to evaluate for any epileptiform activity. EEG FINDINGS: This is a 21 channel routine EEG recording patient utilizing 10/20 international system with referential and bipolar montages. Background consists of well developed, well regulated, moderate voltage activity in 8-9 hertz alpha. Background is posterior dominant and is reactive to eye opening and closing. The background was not reactive to photic stimulation. Some drowsiness and brief stage 2 sleep was seen with presence of some sleep spindles. No definitive epileptiform activity was seen in the entire study. IMPRESSION: This is a normal EEG during wakefulness, drowsiness and brief stage 2 sleep. No definitive epileptiform activity was seen. Normal EEG does not rule out seizure disorder. If your suspicion for seizure is high, suggest prolonged, sleep-deprived EEG. MMODL / IJN: [id number] /
[2020-11-05] MEDS: KETOROLAC 15 MG/ML 1 ML VIAL IVP PRN (18:59)
--- NOTE | 2020-11-05 23:13 | HP ---
HISTORY AND PHYSICAL CHIEF COMPLAINT: Chest pain. Bradycardia. HISTORY OF PRESENT ILLNESS: This is the 1st known admission for this 45-year-old white female. She came to the emergency room complaining of anterior chest pain. EKG was unremarkable except for bradycardia around 40. She has been slightly lightheaded. She has had no fever, chills, recent viral infections, or any history of heart disease. REVIEW OF SYSTEMS: She has had no syncope, neurologic problems, shortness of breath, orthopnea, murmurs, rheumatic fever, abdominal pain, renal disease, diabetes, etc. Past medical history, family history, personal and social history are all reviewed, and noncontributory. She has sustained a right forearm amputation in the past. PHYSICAL EXAMINATION: Blood pressure is 111/68 with a pulse of 40. Respirations were 15. She is afebrile. In general, she appeared to be slender in no acute distress. Skin color is normal. Skin is warm, dry. Lymph nodes are not enlarged. HEENT: Head, ears, eyes, nose, mouth and throat were normal and the. CHEST is clear. CARDIAC exam demonstrated bradycardia. No murmurs or extra sounds. ABDOMEN is soft, nontender without visceromegaly masses bowel sounds present. EXTREMITIES are normal except for the right forearm amputation. NEUROLOGICALLY she is intact. IMPRESSION: She is admitted to the hospital with diagnoses: Chest pain with bradycardia. PLAN: 1. Echocardiogram and cardiac enzymes. 2. Cardiology consult. LYNN / SERG: [id number] /
--- NOTE | 2020-11-05 23:17 | PN ---
PROGRESS NOTE CHIEF COMPLAINT: Chest pain. HISTORY OF PRESENT ILLNESS: This lady is doing well today without chest pain. She has had no shortness of breath. She is. Still bradycardic. PHYSICAL EXAMINATION: Chest is clear. Cardiac exam is normal. Abdomen is soft, nontender. IMPRESSION: 1. Chest pain, etiology unknown. 2. Bradycardia. PLAN: Echocardiogram and await cardiology evaluation. MMODL / IJN: [id number] /
[2020-11-06 07:55] VITALS: BP 101/66; TEMP 98.4
[2020-11-06] MEDS: KETOROLAC 15 MG/ML 1 ML VIAL IVP PRN (08:07)
[2020-11-06] MEDS ORDERED: lamoTRIgine 25 MG TAB PO SCH (10:45)
--- NOTE | 2020-11-06 12:02 | P.PN ---
Subjective Progress Note Date: 11/06/20 Patient is doing much better. Patient very pleasant. No further seizures. Objective - Vital Signs Vital signs: Vital Signs Temp 98.4 F 11/06/20 07:00 Pulse 47 L 11/06/20 07:00 Resp 16 11/06/20 07:00 BP 101/66 11/06/20 07:00 Pulse Ox 98 11/06/20 07:00 Intake & Output 11/05/20 11/06/20 11/06/20 18:59 06:59 18:59 Intake Total 300 Balance 300 Weight 47.174 kg Intake: Oral 300 Other: Voiding Method Toilet Toilet Toilet # Voids 1 3 - Exam Patient is laying comfortably in the bed. Very pleasant today. Speech and language functions are normal. - Labs CBC & Chem 7: 11/04/20 10:56 11/04/20 10:56 Assessment and Plan Assessment: * Possible seizure disorder, rule out epileptic versus nonepileptic seizure. * Multiple stressors * Reports bipolar disorder, currently not being treated. Plan: * Patient has possible seizure disorder, uncertain if epileptic, psychogenic nonepileptic (PNES), or related to her history of alcoholism. Patient states that she does drink "a lot" about 3-4 times a week, but does not consider her an alcoholic. EEG was performed yesterday, which was normal. No epileptiform activity was seen. Normal EEG does not rule out seizure disorder. Patient will be started on Lamictal 25 mg tablet, 1 tablet twice a day and after one week, go up to 2 tablets (50 mg) twice a day and continue. Patient was in formed of possible side effects including rash, in which case she should stop the medication. Lamictal is also a mood stabilizer. * Suggest patient no driving for 6 months unless seizure free, climbing ladders, operating dangerous machinery or unsupervised swimming. * Recommend patient follow up with neurologist in 3-4 weeks for a follow-up. * Neurologically clear for discharge.
--- NOTE | 2020-11-07 06:26 | DS ---
DISCHARGE SUMMARY CHIEF COMPLAINT: Syncope, chest pain, bradycardia. HISTORY OF PRESENT ILLNESS AND PHYSICAL EXAMINATION: Details of this lady's history and physical can be found in the initial workup. LABORATORY STUDIES: While she was in the hospital. She had laboratory studies, details of which can be found in the laboratory section of her chart. COURSE IN THE HOSPITAL: After admission, she was placed on bedrest and started on intravenous fluids and placed on telemetry. She was seen by Neurology and Cardiology. Her cardiac workup was unremarkable including stress echo. Her echo portion was normal. Neurology thought it was possible that she had a seizure and recommend that she go home on Lamictal 25 mg twice a day. She will be sent home. She will be seen in the office in several days in followup. FINAL DIAGNOSES: 1. Syncope. 2. Bradycardia. 3. Dizziness. 4. Possible seizure disorder. 5. History of alcohol abuse. OPERATIONS: None. CONSULTATIONS: Neurology and cardiology. She is improved. MMODL / CALVINN: [id number] /
--- NOTE | 2020-11-13 09:09 | ECHOF ---
Referral Reason:chest pain MEASUREMENTS -------- HEIGHT: 162.6 cm WEIGHT: 47.2 kg BP: RVIDd: 1.9 cm (< 3.3) IVSd: 0.8 cm (0.6 - 1.1) LVIDd: 4.6 cm (3.9 - 5.3) LVPWd: 0.8 cm (0.6 - 1.1) IVSs: 1.2 cm LVIDs: 2.8 cm LVPWs: 1.4 cm LAESV Index (A-L): 29.04 ml/m MV E Montez: 1.10 m/s MV DecT: 234 ms MV A Montez: 0.52 m/s MV E/A Ratio: 2.11 RAP: 5.00 mmHg RVSP: 30.82 mmHg TAPSE: 24.97 mm FINDINGS -------- This was a technically good study. The left ventricular size is normal. Left ventricular wall thickness is normal. Overall left vent ricular systolic function is normal with, an EF between 55 - 60 %. The diastolic filling pattern is normal for the age of the patient 10.05. The right ventricle is normal in size. LA is midly dilated 29-33ml/m2. The right atrial size is normal. There appears to be a prominent Eustacian valve in the right atriu m. Interatrial and interventricular septum intact. The aortic valve is trileaflet and appears structurally normal. The mitral valve is normal. The mitral valve leaflets are mildly thickened. Mild mitral regurgita tion is present. The tricuspid valve appears structurally normal. Mild tricuspid regurgitation present. Right vent ricular systolic pressure is normal at < 35 mmHg. There is no pulmonic regurgitation present. The aortic root size is normal. Normal inferior vena cava with normal inspiratory collapse consistent with estimated right atrial pre ssure of 5 mmHg. There is no pericardial effusion. CONCLUSIONS -------- 1. The left ventricular size is normal. 2. Left ventricular wall thickness is normal. 3. Overall left ventricular systolic function is normal with, an EF between 55 - 60 %. 4. The diastolic filling pattern is normal for the age of the patient 10.05 5. LA is midly dilated 29-33ml/m2. 6. The mitral valve leaflets are mildly thickened. 7. Mild mitral regurgitation is present. 8. Mild tricuspid regurgitation present. 9. There is no pericardial effusion. [employer] INSTALLER: Anita Pacheco RDCS
== END 2020-11-06 15:21 | disposition home or self-care (01) ==
LOC: EC 10:01 → 6NMEDSUR 13:12
PROVIDERS: ADMIT Family Medicine; ATTEND Family Medicine
DX: R07.89 Other chest pain (principal); R00.1 Bradycardia, unspecified; R42 Dizziness and giddiness; R55 Syncope and collapse; R61 Generalized hyperhidrosis; R11.0 Nausea; J45.909 Unspecified asthma, uncomplicated; F41.9 Anxiety disorder, unspecified; K21.9 Gastro-esophageal reflux disease without esophagitis; M25.532 Pain in left wrist; F31.9 Bipolar disorder, unspecified; F10.10 Alcohol abuse, uncomplicated; F17.210 Nicotine dependence, cigarettes, uncomplicated; Z91.040 Latex allergy status; Z91.048 Other nonmedicinal substance allergy status; Z90.710 Acquired absence of both cervix and uterus; Z89.211 Acquired absence of right upper limb below elbow; Z86.69 Personal history of other diseases of the nervous system and sense organs; Z98.890 Other specified postprocedural states; Z82.5 Family history of asthma and other chronic lower respiratory diseases; Z82.69 Family history of other diseases of the musculoskeletal system and connective tissue; Z82.0 Family history of epilepsy and other diseases of the nervous system
CPT/HCPCS: 96376; 96361 ×2; 96375; 96374; 99285; 36415; 94760; 95819; 93005; 93306; 93270; 93351; 80061; 80053; 84443; 82533; 84484; 85025; 85610; 85730; 82024; 71046; G0378 ×3; J2405; J1885 ×2

== ENCOUNTER 2021-01-04 08:54 | Emergency (ER) | payer OTHER ==
[2021-01-04 09:01] VITALS: RESP 18; TEMP 97.8
--- NOTE | 2021-01-04 09:24 | ED ---
General Adult HPI - General Chief complaint: Shortness of Breath Stated complaint: Upper Respiratory Time Seen by Provider: 01/04/21 09:11 Source: patient, RN notes reviewed Mode of arrival: wheelchair Limitations: no limitations - History of Present Illness Initial comments: Patient is a pleasant 45-year-old female presenting to the emergency department with concerns for cough. Onset of symptoms was 4 days ago. Patient started with chills, question of fever, upper respiratory symptoms. Patient then developed cough. Cough has continued and is nonproductive. No fevers at this time. Patient states it does hurt to cough. Patient is coughing frequency. Patient is a smoker. Patient does have history of similar symptoms a couple of times previously associated with pneumonia. Patient is concerned she has pneumonia. - Related Data Home Medications Medication Instructions Recorded Confirmed Ibuprofen [Motrin Ib] 1,800 mg PO Q8H PRN 11/04/20 11/04/20 Previous Rx's Medication Instructions Recorded lamoTRIgine [LaMICtal] 25 mg PO BID #20 tab 11/06/20 predniSONE [Deltasone] 20 mg PO BID #10 tab 01/04/21 Allergies Allergy/AdvReac Type Severity Reaction Status Date / Time latex Allergy Rash/Hives Verified 01/04/21 09:01 adhesive AdvReac Unknown Verified 01/04/21 09:01 Review of Systems ROS Statement: Those systems with pertinent positive or pertinent negative responses have been documented in the HPI. ROS Other: All systems not noted in ROS Statement are negative. Constitutional: Reports: as per HPI, chills Eyes: Denies: eye pain ENT: Denies: ear pain Respiratory: Reports: cough. Denies: dyspnea Cardiovascular: Denies: chest pain Endocrine: Denies: fatigue Gastrointestinal: Denies: abdominal pain Genitourinary: Denies: dysuria Musculoskeletal: Denies: back pain Skin: Denies: rash Neurological: Denies: weakness Past Medical History Past Medical History: Asthma, Seizure Disorder Additional Past Medical History / Comment(s): vertigo History of Any Multi-Drug Resistant Organisms: None Reported Past Surgical History: Hysterectomy, Orthopedic Surgery Additional Past Surgical History / Comment(s): right below elbow amputation, part of tailbone removed, three knee surgeries, teeth removed Past Anesthesia/Blood Transfusion Reactions: Previous Problems w/ Anesthesia Additional Past Anesthesia/Blood Transfusion Reaction / Comment(s): Wakes up during surgery. Needs extra meds to stay down. Past Psychological History: Anxiety Smoking Status: Current every day smoker Past Alcohol Use History: Occasional Past Drug Use History: Marijuana - Past Family History Mother Family Medical History: Asthma, COPD Additional Family Medical History / Comment(s): Scolosis Father Family Medical History: No Reported History General Exam Limitations: no limitations General appearance: alert, in no apparent distress Head exam: Present: normocephalic Eye exam: Present: normal appearance Neck exam: Present: normal inspection Respiratory exam: Present: normal lung sounds bilaterally Cardiovascular Exam: Present: regular rate, normal rhythm GI/Abdominal exam: Present: soft. Absent: tenderness Extremities exam: Present: normal inspection, other (Absent right lower arm beyond the mid forearm.). Absent: pedal edema, calf tenderness Neurological exam: Present: alert Psychiatric exam: Present: normal affect, normal mood Skin exam: Present: normal color Course Vital Signs 01/04/21 08:59 Temperature 97.8 F Pulse Rate 68 Respiratory 18 Rate Blood Pressure 123/77 O2 Sat by Pulse 98 Oximetry EKG Findings - EKG Comments: EKG Findings:: Sinus bradycardia with a rate of 45. NH 106. QRS 92. QT 458. QTC 396. Normal axis. Normal QRS. No acute ST change. Medical Decision Making - Medical Decision Making Patient reevaluated. Patient updated on results and need for follow-up. Patient states she has an inhaler at home. - Lab Data Lab Results 01/04/21 Range/Units 09:23 Coronavirus (PCR) Not Detected (Not Detectd) - Radiology Data Radiology results: image reviewed (Chest x-ray shows no acute process) Disposition Clinical Impression: Acute bronchitis Disposition: HOME SELF-CARE Condition: Stable Instructions (If sedation given, give patient instructions): Acute Bronchitis (ED) Additional Instructions: Prescription for steroid has been sent to your pharmacy. Please follow-up with primary care physician in the next day or 2 for recheck. Have primary care physician review EKG today. Return for difficulty in breathing, uncontrolled fevers, weakness or passing out, worsening symptoms or any other concerns. Prescriptions: predniSONE [Deltasone] 20 mg PO BID #10 tab Is patient prescribed a controlled substance at d/c from ED?: No Referrals: Placido Jefferson MD [Primary Care Provider] - 1-2 days Time of Disposition: 10:27
--- NOTE | 2021-01-04 09:45 | XR ---
EXAMINATION TYPE: XR chest 2V DATE OF EXAM: 01/04/2021 COMPARISON: Chest x-ray 12/16/2020 HISTORY: Cough and chest pain TECHNIQUE: Frontal and lateral views of the chest are obtained. FINDINGS: There is no focal air space opacity, pleural effusion, or pneumothorax seen. The cardiac silhouette size is small, stable. Prominent lung volumes suggest underlying COPD. The osseous struct ures are intact. Breast prostheses are noted. IMPRESSION: No acute cardiopulmonary process.
[2021-01-04 10:58] VITALS: BP 112/72; PULSE 51
== END 2021-01-04 10:57 | disposition home or self-care (01) ==
LOC: EC 08:54
DX: J20.9 Acute bronchitis, unspecified (principal); J45.909 Unspecified asthma, uncomplicated; F17.200 Nicotine dependence, unspecified, uncomplicated; G40.909 Epilepsy, unspecified, not intractable, without status epilepticus; F41.9 Anxiety disorder, unspecified; F12.90 Cannabis use, unspecified, uncomplicated; Z79.1 Long term (current) use of non-steroidal anti-inflammatories (NSAID); Z79.52 Long term (current) use of systemic steroids; Z91.040 Latex allergy status; Z20.822 Contact with and (suspected) exposure to COVID-19
CPT/HCPCS: 71046; 87635; 93005; 99285

== ENCOUNTER → 2021-01-23 | Outpatient (CLI) | payer OTHER ==
[2021-01-23 12:25] LABS: HCT 43.1 % (34.0-46.0); HGB 13.8 gm/dL (11.4-16.0); MCH 32.4 pg (25.0-35.0); Platelet Count 218 k/uL (150-450); RBC 4.27 m/uL (3.80-5.40); RDW 12.4 % (11.5-15.5); WBC 8.4 k/uL (3.8-10.6)
[2021-01-23 12:45] LABS: African American GFR (CKD) >90 (>60 ml/min/1.73 sqM); Anion Gap 7 mmol/L; Blood Urea Nitrogen 14 mg/dL (7-17); Carbon Dioxide 22 mmol/L (22-30); Chloride 107 mmol/L (98-107); Non-African American GFR(CKD) >90 (>60 ml/min/1.73 sqM); Potassium 4.4 mmol/L (3.5-5.1); Sodium 136 mmol/L (137-145)
== END | disposition home or self-care (01) ==
LOC: LABPAT 10:29
PROVIDERS: ATTEND Internal Medicine
DX: Z01.812 Encounter for preprocedural laboratory examination (principal); R55 Syncope and collapse
CPT/HCPCS: 36415; 80051; 82565; 84520; 85027

== ENCOUNTER 2021-02-04 06:10 | Day surgery (SDC) | payer OTHER ==
[2021-01-30 12:01] VITALS: BMI 17.2
[~2021-02-04 06:10] MED LIST: SODIUM CHLORIDE 0.9% 1,000 ML IV SCH
[2021-02-04 06:49] VITALS: RESP 18; TEMP 97.7
[2021-02-04] MEDS ORDERED: fentaNYL (PF) 50 MCG/ML 2 ML AMP IV ONE (07:35)
[2021-02-04] MEDS ORDERED: LIDOCAINE 1% INJ 10MG/ML (20 ML MDV) SQ ONE (07:35)
[2021-02-04] MEDS ORDERED: MIDAZOLAM 2 MG/2 ML VIAL IV ONE (07:35)
--- NOTE | 2021-02-04 08:32 | P.PCN ---
Description of Procedure: Procedure: Insertion of Linq loop recorder Indication: Syncope HISTORY: Patient is a pleasant 45 year old female with recent syncopal episode which may have been vasovagal however additional frequent episodes of LOC and seizure like activity and lightheadedness concerning for possible cardiogenic syncope. Due to infrequency of episodes, a loop recorder was recommended. CONSENT:I have discussed the risks, benefits and alternative therapies for the above-mentioned procedure. The patient has indicated understanding and accepta nce of the risks and procedures discussed. PROCEDURE: Patient was brought to the catheterization lab in a fasting state. Patient was prepped and draped in the usual fashion. 1% lidocaine was used to anesthetize the area of the left third intercostal space. Using the loop recorder incision device, a small 0.5 cm incision was made in the left 3rd intercostal space. Next the Linq loop recorder was deployed in the 3rd intercostal space subcutaneously using the insertion tool. Thresholds were checked and were excellent at 0.3 V. Next the incision was closed using Dermabond. Steristrips were placed over the incision and the procedure was completed. The patient tolerated the procedure well. The patient was transported to the post cath holding area in stable condition. Linq loop recorder serial number: [id number]
[2021-02-04 08:37] VITALS: PULSE 40
[2021-02-04 08:38] VITALS: BP 117/64
== END 2021-02-04 09:03 | disposition home or self-care (01) ==
LOC: CATHEP 06:10
PROVIDERS: ATTEND Internal Medicine
DX: R55 Syncope and collapse (principal); Z20.822 Contact with and (suspected) exposure to COVID-19
CPT/HCPCS: 33285; 87635; C1764; J2250; J0690; J2001; J3010

== ENCOUNTER 2022-09-17 17:24 | Emergency (ER) | payer OTHER ==
[2022-09-17 17:41] VITALS: TEMP 97.5
--- NOTE | 2022-09-17 18:15 | ED ---
General Adult HPI - General Source: patient Mode of arrival: ambulatory Limitations: no limitations <Noemí Shafer - Last Filed: 09/17/22 18:15> - History of Present Illness Onset/Timin -: hour(s) Severity scale (1-10): 0 Consistency: constant Improves with: none Worsens with: none Associated Symptoms: nausea/vomiting Treatments Prior to Arrival: none <Dmitriy Ramos - Last Filed: 09/18/22 09:10> - General Chief complaint: Abdominal Pain Stated complaint: Vomiting Time Seen by Provider: 09/17/22 18:15 - History of Present Illness Initial comments: 46-year-old female presenting with chief complaint of nausea that started at 3:00am today. Denies abdominal pain. (Noemí Shafer) This patient is a 46-year-old woman who presents to have evaluation of nausea and vomiting that started approximately 16 hours ago. She states that she has a little bit of abdominal discomfort around the time she vomits otherwise no real abdominal pain. She has not noted change in bowel movements or urination. No fever or chills (Dmitriy Ramos) - Related Data Home Medications Medication Instructions Recorded Confirmed Ibuprofen [Motrin Ib] 800 mg PO Q8H PRN 11/04/20 02/04/21 Previous Rx's Medication Instructions Recorded Ondansetron Odt [Zofran ODT] 4 mg PO Q8HR PRN #10 tab 09/17/22 Allergies Allergy/AdvReac Type Severity Reaction Status Date / Time latex Allergy Rash/Hives Verified 09/17/22 17:41 adhesive AdvReac Unknown Verified 09/17/22 17:41 Review of Systems ROS Other: All systems not noted in ROS Statement are negative. <Noemí Shafer - Last Filed: 09/17/22 18:15> ROS Other: All systems not noted in ROS Statement are negative. Constitutional: Denies: fever, chills Respiratory: Denies: cough, dyspnea Cardiovascular: Denies: chest pain, palpitations, edema Gastrointestinal: Reports: nausea, vomiting. Denies: abdominal pain, diarrhea, constipation, hematemesis, melena, hematochezia Genitourinary: Denies: dysuria, hematuria, abnormal menses Musculoskeletal: Denies: back pain Skin: Denies: rash Neurological: Denies: headache, weakness <Dmitriy Ramos - Last Filed: 09/18/22 09:10> ROS Statement: Those systems with pertinent positive or pertinent negative responses have been documented in the HPI. Past Medical History Past Medical History: Asthma, Seizure Disorder Additional Past Medical History / Comment(s): vertigo History of Any Multi-Drug Resistant Organisms: None Reported Past Surgical History: Hysterectomy, Orthopedic Surgery Additional Past Surgical History / Comment(s): right below elbow amputation, part of tailbone removed, three knee surgeries, teeth removed Past Anesthesia/Blood Transfusion Reactions: Previous Problems w/ Anesthesia Additional Past Anesthesia/Blood Transfusion Reaction / Comment(s): Wakes up during surgery. Needs extra meds to stay down. Past Psychological History: Anxiety Smoking Status: Current every day smoker Past Alcohol Use History: Rare Past Drug Use History: Marijuana - Past Family History Mother Family Medical History: Asthma, COPD Additional Family Medical History / Comment(s): Scolosis Father Family Medical History: No Reported History <Noemí Shafer - Last Filed: 09/17/22 18:15> General Exam Limitations: no limitations <Noemí Shafer - Last Filed: 09/17/22 18:15> General appearance: alert, in no apparent distress Head exam: Present: atraumatic, normocephalic Eye exam: Present: normal appearance. Absent: scleral icterus, conjunctival injection Neck exam: Present: normal inspection Respiratory exam: Present: normal lung sounds bilaterally. Absent: respiratory distress, wheezes, rales, rhonchi, stridor Cardiovascular Exam: Present: regular rate, normal rhythm, normal heart sounds. Absent: systolic murmur, diastolic murmur, rubs, gallop GI/Abdominal exam: Present: soft, tenderness (There is some moderate tenderness in the epigastric area without rebound or guarding). Absent: distended, guarding, rebound, rigid, mass Extremities exam: Present: normal capillary refill. Absent: normal inspection (There is a right forearm amputation.), pedal edema, calf tenderness Back exam: Present: normal inspection. Absent: CVA tenderness (R), CVA tenderness (L) Neurological exam: Present: alert Skin exam: Present: warm, dry, intact, normal color. Absent: rash <Dmitriy Ramos - Last Filed: 09/18/22 09:10> - General Exam Comments Initial Comments: Visual Physical Exam Vital signs reviewed General: Well-appearing, nontoxic, no acute distress. Head: Normocephalic, atraumatic Eyes: PERRLA, EOMI ENT: Airway patent Chest: Nonlabored breathing Skin: No visual rash, normal skin tone Neuro: Alert and oriented 3 Musculoskeletal: No gross abnormalities (Noemí Shafer) Course Vital Signs 09/17/22 09/17/22 09/17/22 17:37 20:44 22:41 Temperature 97.5 F L Pulse Rate 78 40 L 40 L Respiratory 16 14 16 Rate Blood Pressure 137/66 107/63 101/61 O2 Sat by Pulse 100 100 100 Oximetry Medical Decision Making - Lab Data Result diagrams: 09/17/22 20:22 09/17/22 20:22 <Dmitriy Ramos - Last Filed: 09/18/22 09:10> - Medical Decision Making Patient's 46-year-old woman with some mild abdominal discomfort and persistent nausea and vomiting. Was pt. sent in by a medical professional or institution (Dr. PA, RPG PROGRAMMER, urgent care, hospital, or senior living...) When possible be specific @ -[No] Did you speak to anyone other than the patient for history (EMS, parent, family, police, friend...)? What history was obtained from this source @ -[No] Did you review nursing and triage notes (agree or disagree)? Why? @ -[I reviewed and agree with nursing and triage notes] Were old charts reviewed (outside hosp., previous admission, EMS record, old EKG, old radiological studies, urgent care reports/EKG's, senior living records)? Report findings @ -[No old charts were reviewed] Differential Diagnosis (chest pain, altered mental status, abdominal pain women, abdominal pain men, vaginal bleeding, weakness, fever, dyspnea, syncope, headache, dizziness, GI bleed, back pain, seizure, CVA, palpatations, mental health, musculoskeletal)? @ -[Differential Abdominal Pain Women: Appendicitis, Cholecystitis, diverticulosis, ischemic bowel, pancreatitis, hepatitis, UTI, gastroenteritis, AAA, incarcerated hernia, bowel obstruction, constipation, inflammatory bowel, hepatitis, peptic ulcer disease, splenic infarction, perforated viscus, vulvitis, ovarian torsion, PID, kidney stone, placenta abruption, this is not meant to be an all-inclusive list EKG interpreted by me (3pts min.). @ -[As above] X-rays interpreted by me (1pt min.). @ -[None done] CT interpreted by me (1pt min.). @ -[None done] U/S interpreted by me (1pt. min.). @ -[None done] What testing was considered but not performed or refused? (CT, X-rays, U/S, labs)? Why? @ -[None] What meds were considered but not given or refused? Why? @ -[None] Did you discuss the management of the patient with other professionals (professionals i.e. Dr., PA, RPG PROGRAMMER, lab, RT, psych nurse, social service director, junior high math teacher, teacher, chief digital officer, medical case manager)? Give summary @ -[No] Was smoking cessation discussed for >3mins.? @ -[No] Was critical care preformed (if so, how long)? @ -[No] Were there social determinants of health that impacted care today? How? (Homelessness, low income, unemployed, alcoholism, drug addiction, transportation, low edu. Level, literacy, decrease access to med. care, retirement, rehab)? @ -[No] Was there de-escalation of care discussed even if they declined (Discuss DNR or withdrawal of care, Hospice)? DNR status @ -[No] What co-morbidities impacted this encounter? (DM, HTN, Smoking, COPD, CAD, Cancer, CVA, ARF, Chemo, Hep., AIDS, mental health diagnosis, sleep apnea, morbid obesity)? @ -[None] Was patient admitted / discharged? Hospital course, mention meds given and route, prescriptions, significant lab abnormalities, going to OR and other pertinent info. @ -[The patient has improved with treatment here. Appropriate further care and follow-up is discussed as well as return parameters and the patient is discharged with close follow-up Undiagnosed new problem with uncertain prognosis? @ -[No] Drug Therapy requiring intensive monitoring for toxicity (Heparin, Nitro, Insulin, Cardizem)? @ -[No] Were any procedures done? @ -[No] Diagnosis/symptom? @ -[Acute gastritis, with nausea and vomiting. Acute, or Chronic, or Acute on Chronic? @ -[Acute Uncomplicated (without systemic symptoms) or Complicated (systemic symptoms)? @ -[Uncomplicated Side effects of treatment? @ -[No] Exacerbation, Progression, or Severe Exacerbation? @ -[No] Poses a threat to life or bodily function? How? (Chest pain, USA, SC, pneumonia, PE, COPD, DKA, ARF, appy, cholecystitis, CVA, Diverticulitis, Homicidal, Suicidal, threat to staff... and all critical care pts) @ -[No] (Dmitriy Ramos) - Lab Data Lab Results 09/17/22 09/17/22 09/17/22 Range/Units 20:22 20:22 20: WBC 8.3 (3.8-10.6) k/uL RBC 4.45 (3.80-5.40) m/uL Hgb 14.5 (11.4-16.0) gm/dL Hct 44.4 (34.0-46.0) % MCV 99.6 (80.0-100.0) fL MCH 32.5 (25.0-35.0) pg MCHC 32.6 (31.0-37.0) g/dL RDW 12.2 (11.5-15.5) % Plt Count 275 (150-450) k/uL MPV 9.3 Neutrophils % 87 % Lymphocytes % 9 % Monocytes % 3 % Eosinophils % 1 % Basophils % 1 % Neutrophils # 7.2 (1.3-7.7) k/uL Lymphocytes # 0.7 L (1.0-4.8) k/uL Monocytes # 0.3 (0-1.0) k/uL Eosinophils # 0.1 (0-0.7) k/uL Basophils # 0.0 (0-0.2) k/uL Sodium 137 (137-145) mmol/L Potassium 3.8 (3.5-5.1) mmol/L Chloride 105 (98-107) mmol/L Carbon Dioxide 25 (22-30) mmol/L Anion Gap 7 mmol/L BUN 19 H (7-17) mg/dL Creatinine 0.37 L (0.52-1.04) mg/dL Est GFR (CKD-EPI)AfAm >90 (>60 ml/min/1.73 sqM) Est GFR (CKD-EPI)NonAf >90 (>60 ml/min/1.73 sqM) Glucose 86 (74-99) mg/dL Calcium 9.1 (8.4-10.2) mg/dL Total Bilirubin 0.8 (0.2-1.3) mg/dL AST 25 (14-36) U/L ALT 23 (4-34) U/L Alkaline Phosphatase 69 (38-126) U/L Total Protein 6.5 (6.3-8.2) g/dL Albumin 4.2 (3.5-5.0) g/dL Amylase 56 (30-110) U/L Lipase 26 (23-300) U/L Urine Color Yellow Urine Appearance Turbid H (Clear) Urine pH 6.0 (5.0-8.0) Ur Specific [place] 1.029 (1.001-1.035) Urine Protein 2+ H (Negative) Urine Glucose (UA) Trace H (Negative) Urine Ketones 4+ H (Negative) Urine Blood Negative (Negative) Urine Nitrite Negative (Negative) Urine Bilirubin Negative (Negative) Urine Urobilinogen <2.0 (<2.0) mg/dL Ur Leukocyte Esterase Trace H (Negative) Urine RBC 1 (0-5) /hpf Urine WBC 18 H (0-5) /hpf Ur Squamous Epith Cells 66 H (0-4) /hpf Urine Mucus Moderate H (None) /hpf Influenza Type A (PCR) (Not Detectd) Influenza Type B (PCR) (Not Detectd) RSV (PCR) (Not Detectd) SARS-CoV-2 (PCR) (Not Detectd) Group A Strep (PCR) (Not Detectd) 09/17/22 09/17/22 Range/Units 20:22 20:22 WBC (3.8-10.6) k/uL RBC (3.80-5.40) m/uL Hgb (11.4-16.0) gm/dL Hct (34.0-46.0) % MCV (80.0-100.0) fL MCH (25.0-35.0) pg MCHC (31.0-37.0) g/dL RDW (11.5-15.5) % Plt Count (150-450) k/uL MPV Neutrophils % % Lymphocytes % % Monocytes % % Eosinophils % % Basophils % % Neutrophils # (1.3-7.7) k/uL Lymphocytes # (1.0-4.8) k/uL Monocytes # (0-1.0) k/uL Eosinophils # (0-0.7) k/uL Basophils # (0-0.2) k/uL Sodium (137-145) mmol/L Potassium (3.5-5.1) mmol/L Chloride (98-107) mmol/L Carbon Dioxide (22-30) mmol/L Anion Gap mmol/L BUN (7-17) mg/dL Creatinine (0.52-1.04) mg/dL Est GFR (CKD-EPI)AfAm (>60 ml/min/1.73 sqM) Est GFR (CKD-EPI)NonAf (>60 ml/min/1.73 sqM) Glucose (74-99) mg/dL Calcium (8.4-10.2) mg/dL Total Bilirubin (0.2-1.3) mg/dL AST (14-36) U/L ALT (4-34) U/L Alkaline Phosphatase (38-126) U/L Total Protein (6.3-8.2) g/dL Albumin (3.5-5.0) g/dL Amylase (30-110) U/L Lipase (23-300) U/L Urine Color Urine Appearance (Clear) Urine pH (5.0-8.0) Ur Specific [place] (1.001-1.035) Urine Protein (Negative) Urine Glucose (UA) (Negative) Urine Ketones (Negative) Urine Blood (Negative) Urine Nitrite (Negative) Urine Bilirubin (Negative) Urine Urobilinogen (<2.0) mg/dL Ur Leukocyte Esterase (Negative) Urine RBC (0-5) /hpf Urine WBC (0-5) /hpf Ur Squamous Epith Cells (0-4) /hpf Urine Mucus (None) /hpf Influenza Type A (PCR) Not Detected (Not Detectd) Influenza Type B (PCR) Not Detected (Not Detectd) RSV (PCR) Not Detected (Not Detectd) SARS-CoV-2 (PCR) Not Detected (Not Detectd) Group A Strep (PCR) NOT DETECTED (Not Detectd) Disposition <Noemí Shafer - Last Filed: 09/17/22 18:15> Is patient prescribed a controlled substance at d/c from ED?: No <Dmitriy Ramos - Last Filed: 09/18/22 09:10> Clinical Impression: Gastritis Disposition: HOME SELF-CARE Condition: Good Instructions (If sedation given, give patient instructions): Acute Abdominal Pain (ED) Prescriptions: Ondansetron Odt [Zofran ODT] 4 mg PO Q8HR PRN #10 tab PRN Reason: Nausea Referrals: Placido Jefferson MD [Primary Care Provider] - 1-2 days
[2022-09-17] MEDS ORDERED: ONDANSETRON 4 MG/2 ML VIAL IVP STA (19:18)
[2022-09-17] MEDS ORDERED: SODIUM CHLORIDE 0.9% 500 ML 500 ML IV STA (19:18)
[2022-09-17 20:46] LABS: ALT 23 U/L (4-34); AST 25 U/L (14-36); African American GFR (CKD) >90 (>60 ml/min/1.73 sqM); Albumin 4.2 g/dL (3.5-5.0); Alkaline Phosphatase 69 U/L (38-126); Amylase 56 U/L (30-110); Anion Gap 7 mmol/L; Blood Urea Nitrogen 19 mg/dL (7-17); Calcium 9.1 mg/dL (8.4-10.2); Carbon Dioxide 25 mmol/L (22-30); Chloride 105 mmol/L (98-107); Glucose 86 mg/dL (74-99); Lipase 26 U/L (23-300); Non-African American GFR(CKD) >90 (>60 ml/min/1.73 sqM); Potassium 3.8 mmol/L (3.5-5.1); Sodium 137 mmol/L (137-145); Total Bilirubin 0.8 mg/dL (0.2-1.3); Total Protein 6.5 g/dL (6.3-8.2)
[2022-09-17 20:48] LABS: Basophils % (A) 1 %; Eosinophils # (A) 0.1 k/uL (0-0.7); Eosinophils % (A) 1 %; HCT 44.4 % (34.0-46.0); HGB 14.5 gm/dL (11.4-16.0); Lymphocytes # (A) 0.7 k/uL (1.0-4.8); Lymphocytes % (A) 9 %; MCH 32.5 pg (25.0-35.0); MCHC 32.6 g/dL (31.0-37.0); MCV 99.6 fL (80.0-100.0); Mean Platelet Volume 9.3; Monocytes # (A) 0.3 k/uL (0-1.0); Monocytes % (A) 3 %; Neutrophils # (A) 7.2 k/uL (1.3-7.7); Neutrophils % (A) 87 %; Platelet Count 275 k/uL (150-450); RBC 4.45 m/uL (3.80-5.40); RDW 12.2 % (11.5-15.5); WBC 8.3 k/uL (3.8-10.6)
[2022-09-17 20:53] VITALS: PULSE 40
[2022-09-17 21:30] LABS: Appearance,Urine Turbid (Clear); Bilirubin,Urine Negative (Negative); Blood,Urine Negative (Negative); Color,Urine Yellow; Glucose,Urine (UA) Trace (Negative); Ketones,Urine 4+ (Negative); Leukocyte Esterase,Urine Trace (Negative); Mucus,Urine Moderate /hpf; Nitrite,Urine Negative (Negative); Protein,Urine 2+ (Negative); RBC,Urine 1 /hpf (0-5); Specific Gravity,Urine 1.029 (1.001-1.035); Squamous Epithelial Cell,Urine 66 /hpf (0-4); Urobilinogen,Urine <2.0 mg/dL (<2.0); WBC,Urine 18 /hpf (0-5)
[2022-09-17 22:43] VITALS: BP 101/61; RESP 16
== END 2022-09-17 22:45 | disposition home or self-care (01) ==
LOC: EC 17:24
DX: K29.70 Gastritis, unspecified, without bleeding (principal); J45.909 Unspecified asthma, uncomplicated; F41.9 Anxiety disorder, unspecified; F17.200 Nicotine dependence, unspecified, uncomplicated; F12.90 Cannabis use, unspecified, uncomplicated; Z91.040 Latex allergy status; Z91.048 Other nonmedicinal substance allergy status; Z79.899 Other long term (current) drug therapy; Z20.822 Contact with and (suspected) exposure to COVID-19
CPT/HCPCS: 36415; 87651; 80053; 82150; 83690; 85025; 81001; 87636; 99284; 96374; 96361; J2405

== ENCOUNTER 2022-11-20 16:10 | Emergency (ER) | payer OTHER ==
[2022-11-20 16:42] VITALS: TEMP 98.9
[2022-11-20 17:13] LABS: Basophils % (A) 0 %; Eosinophils # (A) 0.2 k/uL (0-0.7); Eosinophils % (A) 3 %; HCT 40.5 % (34.0-46.0); HGB 13.7 gm/dL (11.4-16.0); Lymphocytes # (A) 1.8 k/uL (1.0-4.8); Lymphocytes % (A) 26 %; MCH 32.6 pg (25.0-35.0); MCHC 33.8 g/dL (31.0-37.0); MCV 96.6 fL (80.0-100.0); Mean Platelet Volume 8.9; Monocytes # (A) 0.2 k/uL (0-1.0); Monocytes % (A) 3 %; Neutrophils # (A) 4.7 k/uL (1.3-7.7); Neutrophils % (A) 67 %; Platelet Count 278 k/uL (150-450); RBC 4.19 m/uL (3.80-5.40); RDW 12.7 % (11.5-15.5); WBC 7.1 k/uL (3.8-10.6)
[2022-11-20 17:23] LABS: Partial Thromboplastin Time 25.2 sec (22.0-30.0); Prothrombin Time 10.8 sec (9.0-12.0)
[2022-11-20 17:48] LABS: ALT 16 U/L (4-34); AST 23 U/L (14-36); African American GFR (CKD) >90 (>60 ml/min/1.73 sqM); Albumin 4.1 g/dL (3.5-5.0); Alkaline Phosphatase 68 U/L (38-126); Anion Gap 10 mmol/L; Blood Urea Nitrogen 17 mg/dL (7-17); Calcium 9.1 mg/dL (8.4-10.2); Carbon Dioxide 20 mmol/L (22-30); Chloride 105 mmol/L (98-107); Glucose 122 mg/dL (74-99); Magnesium 1.9 mg/dL (1.6-2.3); Non-African American GFR(CKD) >90 (>60 ml/min/1.73 sqM); Potassium 3.8 mmol/L (3.5-5.1); Sodium 135 mmol/L (137-145); Total Bilirubin 0.4 mg/dL (0.2-1.3); Total Protein 6.6 g/dL (6.3-8.2)
[2022-11-20] MEDS ORDERED: IPRATROPIUM-ALBUTEROL 3 ML NEB INHALATION STA (18:52)
[2022-11-20] MEDS ORDERED: predniSONE 20 MG TAB PO STA (18:52)
--- NOTE | 2022-11-20 19:17 | XR ---
EXAMINATION TYPE: XR chest 2V DATE OF EXAM: 11/20/2022 7:01 PM COMPARISON: Chest radiographs from 01/04/2021 TECHNIQUE: XR chest 2V Frontal and lateral views of the chest. CLINICAL INDICATION:Female, 47 years old with history of chest pain; FINDINGS: Lungs/Pleura: There is flattening of the diaphragm with increased lucency of the lungs. No evidence o f pneumothorax, pleural effusion or focal consolidation. Pulmonary vascularity: Unremarkable. Heart/mediastinum: Cardiomediastinal silhouette is unremarkable. A loop recorder projects over the le ft thorax over the heart. Musculoskeletal: No acute osseous pathology. IMPRESSION: 1. No acute cardiopulmonary disease process. 2. COPD changes.
--- NOTE | 2022-11-20 19:51 | ED ---
General Adult HPI - General Chief complaint: Chest Pain Stated complaint: chest pain Time Seen by Provider: 11/20/22 16:40 Source: patient Mode of arrival: ambulatory Limitations: no limitations - History of Present Illness Initial comments: 47 year female presents the emergency department reporting chest tightness and shortness of breath. States his been going on for the past 3 days. She has associated shortness of breath and cough. Cough is nonproductive. No sick contacts. States that she has had these symptoms several times before and it is consistent with her episodes of bronchitis/pneumonia. She denies history of cardiac disease. No history of DVT or PE. No fevers. No nausea, vomiting or diarrhea. No concern for . No other alleviating, precipitating or modifying factors - Related Data Home Medications Medication Instructions Recorded Confirmed Ibuprofen [Motrin Ib] 800 mg PO Q8H PRN 11/04/20 02/04/21 Previous Rx's Medication Instructions Recorded Ondansetron Odt [Zofran ODT] 4 mg PO Q8HR PRN #10 tab 09/17/22 Albuterol Inhaler [Ventolin Hfa 1 - 2 puff INHALATION Q4HR #1 each 11/20/22 Inhaler] Azithromycin [Zithromax Z Pack] 1 tab PO DIRECTED #6 tab 11/20/22 predniSONE [Deltasone] 20 mg PO BID #10 tab 11/20/22 Allergies Allergy/AdvReac Type Severity Reaction Status Date / Time latex Allergy Rash/Hives Verified 11/20/22 16:42 adhesive AdvReac Unknown Verified 11/20/22 16:42 Review of Systems ROS Statement: Those systems with pertinent positive or pertinent negative responses have been documented in the HPI. ROS Other: All systems not noted in ROS Statement are negative. Past Medical History Past Medical History: Asthma, Seizure Disorder Additional Past Medical History / Comment(s): vertigo History of Any Multi-Drug Resistant Organisms: None Reported Past Surgical History: Hysterectomy, Orthopedic Surgery Additional Past Surgical History / Comment(s): right below elbow amputation, part of tailbone removed, three knee surgeries, teeth removed Past Anesthesia/Blood Transfusion Reactions: Previous Problems w/ Anesthesia Additional Past Anesthesia/Blood Transfusion Reaction / Comment(s): Wakes up during surgery. Needs extra meds to stay down. Past Psychological History: Anxiety Smoking Status: Current every day smoker Past Alcohol Use History: Rare Past Drug Use History: Marijuana - Past Family History Mother Family Medical History: Asthma, COPD Additional Family Medical History / Comment(s): Scolosis Father Family Medical History: No Reported History General Exam Limitations: no limitations General appearance: alert, in no apparent distress Head exam: Present: atraumatic, normocephalic, normal inspection Eye exam: Present: normal appearance, PERRL, EOMI. Absent: scleral icterus, conjunctival injection, periorbital swelling ENT exam: Present: mucous membranes moist, other (Right TM is erythematous and bulging) Neck exam: Present: normal inspection. Absent: tenderness, meningismus, lymphadenopathy Respiratory exam: Present: normal lung sounds bilaterally. Absent: respiratory distress, wheezes, rales, rhonchi, stridor Cardiovascular Exam: Present: regular rate, normal rhythm, normal heart sounds. Absent: systolic murmur, diastolic murmur, rubs, gallop, clicks GI/Abdominal exam: Present: soft, normal bowel sounds. Absent: distended, tenderness, guarding, rebound, rigid Extremities exam: Present: normal inspection, full ROM, normal capillary refill. Absent: tenderness, pedal edema, joint swelling, calf tenderness Back exam: Present: normal inspection Neurological exam: Present: alert, oriented X3, CN II-XII intact Psychiatric exam: Present: normal affect, normal mood Skin exam: Present: warm, dry, intact, normal color. Absent: rash Course Vital Signs 11/20/22 11/20/22 11/20/22 16:39 20:09 20:16 Temperature 98.9 F Pulse Rate 54 L 54 L 52 L Respiratory 20 18 Rate Blood Pressure 113/64 123/71 O2 Sat by Pulse 99 98 Oximetry 11/20/22 20:20 Temperature Pulse Rate 60 Respiratory Rate Blood Pressure O2 Sat by Pulse Oximetry Medical Decision Making - Medical Decision Making Was pt. sent in by a medical professional or institution (, PA, CHECK WRITING MACHINE OPERATOR, urgent care, hospital, or fpc...) When possible be specific @ -No Did you speak to anyone other than the patient for history (EMS, parent, family, police, friend...)? What history was obtained from this source @ -No Did you review nursing and triage notes (agree or disagree)? Why? @ -I reviewed and agree with nursing and triage notes Were old charts reviewed (outside hosp., previous admission, EMS record, old EKG, old radiological studies, urgent care reports/EKG's, fpc records)? Report findings @ -No old charts were reviewed Differential Diagnosis (chest pain, altered mental status, abdominal pain women, abdominal pain men, vaginal bleeding, weakness, fever, dyspnea, syncope, headache, dizziness, GI bleed, back pain, seizure, CVA, palpatations, mental health, musculoskeletal)? @ -Differential Dyspnea: Coronary syndrome, arrhythmia, tamponade, asthma, COPD, pulmonary embolism, pneumonia, pneumothorax, pulmonary effusion, anaphylaxis, diabetic ketoacidosis, flailed chest, pulmonary contusion, diaphragmatic rupture, anemia, neuromuscular, this is not meant to be an all-inclusive list. EKG interpreted by me (3pts min.). @ -Yes and demonstrates sinus bradycardia with a rate of 55. NC interval 132. QRS 95. QTC 398. no acute ST segment elevations or depressions X-rays interpreted by me (1pt min.). @ -Yes and demonstrates no acute intrathoracic process CT interpreted by me (1pt min.). @ -None done U/S interpreted by me (1pt. min.). @ -None done What testing was considered but not performed or refused? (CT, X-rays, U/S, labs)? Why? @ -None What meds were considered but not given or refused? Why? @ -None Did you discuss the management of the patient with other professionals (professionals i.e. , PA, CHECK WRITING MACHINE OPERATOR, lab, RT, psych nurse, high school social studies teacher, cane furniture maker, teacher, court officer, outpatient case manager)? Give summary @ -No Was smoking cessation discussed for >3mins.? @ -No Was critical care preformed (if so, how long)? @ -No Were there social determinants of health that impacted care today? How? (Homelessness, low income, unemployed, alcoholism, drug addiction, transportation, low edu. Level, literacy, decrease access to med. care, fci, rehab)? @ -No Was there de-escalation of care discussed even if they declined (Discuss DNR or withdrawal of care, Hospice)? DNR status @ -No What co-morbidities impacted this encounter? (DM, HTN, Smoking, COPD, CAD, Cancer, CVA, ARF, Chemo, Hep., AIDS, mental health diagnosis, sleep apnea, morbid obesity)? @ -Nicotine use Was patient admitted / discharged? Hospital course, mention meds given and route, prescriptions, significant lab abnormalities, going to OR and other pertinent info. @ -Upon arrival patient's placed into room 19. A thorough history and physical exam was performed. IV access is established. Laboratory studies were con ducted. Troponin negative. D-dimer negative. Chest x-ray demonstrates no acute intrathoracic process. Patient is started on prednisone and given a breathing treatment. She'll be placed on prednisone and an albuterol inhaler at home. Additionally she is started on Zithromax for a right otitis media. She did alter primary care doctor in 2-4 days and return for any new or worsening symptoms. Patient agreeable this and she is discharged in stable condition Undiagnosed new problem with uncertain prognosis? @ -No Drug Therapy requiring intensive monitoring for toxicity (Heparin, Nitro, Insulin, Cardizem)? @ -No Were any procedures done? @ -No Diagnosis/symptom? @ -Acute cough, acute bronchitis, right otitis media Acute, or Chronic, or Acute on Chronic? @ -Acute Uncomplicated (without systemic symptoms) or Complicated (systemic symptoms)? @ -Complicated Side effects of treatment? @ -No Exacerbation, Progression, or Severe Exacerbation? @ -No Poses a threat to life or bodily function? How? (Chest pain, USA, PR, pneumonia, PE, COPD, DKA, ARF, appy, cholecystitis, CVA, Diverticulitis, Homicidal, Suicidal, threat to staff... and all critical care pts) @ -No - Lab Data Result diagrams: 11/20/22 16:40 11/20/22 16:40 Lab Results 11/20/22 11/20/22 11/20/22 Range/Units 16:40 16:40 16:40 WBC 7.1 (3.8-10.6) k/uL RBC 4.19 (3.80-5.40) m/uL Hgb 13.7 (11.4-16.0) gm/dL Hct 40.5 (34.0-46.0) % MCV 96.6 (80.0-100.0) fL MCH 32.6 (25.0-35.0) pg MCHC 33.8 (31.0-37.0) g/dL RDW 12.7 (11.5-15.5) % Plt Count 278 (150-450) k/uL MPV 8.9 Neutrophils % 67 % Lymphocytes % 26 % Monocytes % 3 % Eosinophils % 3 % Basophils % 0 % Neutrophils # 4.7 (1.3-7.7) k/uL Lymphocytes # 1.8 (1.0-4.8) k/uL Monocytes # 0.2 (0-1.0) k/uL Eosinophils # 0.2 (0-0.7) k/uL Basophils # 0.0 (0-0.2) k/uL PT 10.8 (9.0-12.0) sec INR 1.0 (<1.2) APTT 25.2 (22.0-30.0) sec D-Dimer (<0.60) mg/L FEU Sodium 135 L (137-145) mmol/L Potassium 3.8 (3.5-5.1) mmol/L Chloride 105 (98-107) mmol/L Carbon Dioxide 20 L (22-30) mmol/L Anion Gap 10 mmol/L BUN 17 (7-17) mg/dL Creatinine 0.46 L (0.52-1.04) mg/dL Est GFR (CKD-EPI)AfAm >90 (>60 ml/min/1.73 sqM) Est GFR (CKD-EPI)NonAf >90 (>60 ml/min/1.73 sqM) Glucose 122 H (74-99) mg/dL Calcium 9.1 (8.4-10.2) mg/dL Magnesium 1.9 (1.6-2.3) mg/dL Total Bilirubin 0.4 (0.2-1.3) mg/dL AST 23 (14-36) U/L ALT 16 (4-34) U/L Alkaline Phosphatase 68 (38-126) U/L Troponin I (0.000-0.034) ng/mL Total Protein 6.6 (6.3-8.2) g/dL Albumin 4.1 (3.5-5.0) g/dL 11/20/22 11/20/22 Range/Units 16:40 18:14 WBC (3.8-10.6) k/uL RBC (3.80-5.40) m/uL Hgb (11.4-16.0) gm/dL Hct (34.0-46.0) % MCV (80.0-100.0) fL MCH (25.0-35.0) pg MCHC (31.0-37.0) g/dL RDW (11.5-15.5) % Plt Count (150-450) k/uL MPV Neutrophils % % Lymphocytes % % Monocytes % % Eosinophils % % Basophils % % Neutrophils # (1.3-7.7) k/uL Lymphocytes # (1.0-4.8) k/uL Monocytes # (0-1.0) k/uL Eosinophils # (0-0.7) k/uL Basophils # (0-0.2) k/uL PT (9.0-12.0) sec INR (<1.2) APTT (22.0-30.0) sec D-Dimer 0.26 (<0.60) mg/L FEU Sodium (137-145) mmol/L Potassium (3.5-5.1) mmol/L Chloride (98-107) mmol/L Carbon Dioxide (22-30) mmol/L Anion Gap mmol/L BUN (7-17) mg/dL Creatinine (0.52-1.04) mg/dL Est GFR (CKD-EPI)AfAm (>60 ml/min/1.73 sqM) Est GFR (CKD-EPI)NonAf (>60 ml/min/1.73 sqM) Glucose (74-99) mg/dL Calcium (8.4-10.2) mg/dL Magnesium (1.6-2.3) mg/dL Total Bilirubin (0.2-1.3) mg/dL AST (14-36) U/L ALT (4-34) U/L Alkaline Phosphatase (38-126) U/L Troponin I <0.012 (0.000-0.034) ng/mL Total Protein (6.3-8.2) g/dL Albumin (3.5-5.0) g/dL Disposition Clinical Impression: Cough, Right otitis media, Acute bronchitis Disposition: HOME SELF-CARE Condition: Stable Instructions (If sedation given, give patient instructions): Acute Bronchitis (ED) Additional Instructions: Please use 2 puffs of the inhaler every 4 hours. Take the steroids starting tomorrow. Take the antibiotic as directed. Follow-up with your doctor and return for any new or worsening symptoms Prescriptions: predniSONE [Deltasone] 20 mg PO BID #10 tab Albuterol Inhaler [Ventolin Hfa Inhaler] 1 - 2 puff INHALATION Q4HR #1 each Azithromycin [Zithromax Z Pack] 1 tab PO DIRECTED #6 tab Is patient prescribed a controlled substance at d/c from ED?: No Referrals: Plaicdo Jefferson MD [Primary Care Provider] - 1-2 days Time of Disposition: 19:50
[2022-11-20 20:17] VITALS: BP 123/71; RESP 18
[2022-11-20 20:24] VITALS: PULSE 60
== END 2022-11-20 20:39 | disposition home or self-care (01) ==
LOC: EC 16:10
DX: H66.91 Otitis media, unspecified, right ear (principal); J20.9 Acute bronchitis, unspecified; J45.909 Unspecified asthma, uncomplicated; F12.90 Cannabis use, unspecified, uncomplicated; F17.200 Nicotine dependence, unspecified, uncomplicated; Z91.040 Latex allergy status; Z88.8 Allergy status to other drugs, medicaments and biological substances
CPT/HCPCS: 36415; 94640; 93005; 85379; 80053; 83735; 84484; 85025; 85610; 85730; 71046; 99285; J7512

== ENCOUNTER 2023-03-27 14:07 | Emergency (ER) | payer OTHER ==
[2023-03-27 14:32] VITALS: BP 124/78; PULSE 67; RESP 16; TEMP 98.4
[2023-03-27] MEDS ORDERED: SODIUM CHLORIDE 0.9% 1,000 ML IV ONE (14:53)
--- NOTE | 2023-03-27 15:20 | CT ---
EXAMINATION TYPE: CT brain wo con CT DLP: 1075.4 mGycm, Automated exposure control for dose reduction was used. DATE OF EXAM: 03/27/2023 3:12 PM COMPARISON: 07/10/2015. CLINICAL INDICATION:Female, 47 years old with history of seizure, seizure, vertigo TECHNIQUE: Brain: Axial CT images of the brain were obtained with coronal and sagittal reformats created and rev iewed. Contrast used: None. Oral contrast used: None. FINDINGS: Brain: Extra-axial spaces: No abnormal extra-axial fluid collections. Ventricular system: Within normal limits Cerebral parenchyma: No acute intraparenchymal hemorrhage or mass effect. The sherman-white junction is well differentiated. Cerebellum: Unremarkable. Mass effect: No evidence of midline shift. Intracranial vasculature: unremarkable Soft tissues: Normal. Calvarium/osseous structures: No depressed skull fracture. Paranasal sinuses and mastoid air cells: Mild scattered paranasal sinus disease. Stable right posteri or skull exophytic calcification which could represent sequela prior traumatic injury. Visualized orbits: Orbital contents are intact. IMPRESSION: No acute intracranial process.
[2023-03-27 15:55] LABS: Basophils % (A) 0 %; Eosinophils # (A) 0.1 k/uL (0-0.7); Eosinophils % (A) 1 %; HCT 41.1 % (34.0-46.0); HGB 13.7 gm/dL (11.4-16.0); Lymphocytes # (A) 1.8 k/uL (1.0-4.8); Lymphocytes % (A) 20 %; MCH 32.3 pg (25.0-35.0); MCHC 33.4 g/dL (31.0-37.0); MCV 96.7 fL (80.0-100.0); Mean Platelet Volume 7.7; Monocytes # (A) 0.4 k/uL (0-1.0); Monocytes % (A) 5 %; Neutrophils # (A) 6.9 k/uL (1.3-7.7); Neutrophils % (A) 73 %; Platelet Count 297 k/uL (150-450); RBC 4.25 m/uL (3.80-5.40); RDW 13.1 % (11.5-15.5); WBC 9.4 k/uL (3.8-10.6)
[2023-03-27 16:07] LABS: ALT 54 U/L (4-34); AST 49 U/L (14-36); African American GFR (CKD) >90 (>60 ml/min/1.73 sqM); Albumin 5.2 g/dL (3.5-5.0); Alkaline Phosphatase 73 U/L (38-126); Anion Gap 11 mmol/L; Blood Urea Nitrogen 18 mg/dL (7-17); Calcium 10.1 mg/dL (8.4-10.2); Carbon Dioxide 26 mmol/L (22-30); Chloride 101 mmol/L (98-107); Glucose 102 mg/dL (74-99); Magnesium 2.3 mg/dL (1.6-2.3); Non-African American GFR(CKD) >90 (>60 ml/min/1.73 sqM); Sodium 138 mmol/L (137-145); Total Bilirubin 0.9 mg/dL (0.2-1.3)
--- NOTE | 2023-03-27 16:39 | ED ---
General Adult HPI - General Chief complaint: Seizure Stated complaint: seizure Time Seen by Provider: 03/27/23 14:50 Source: patient, RN notes reviewed Mode of arrival: ambulatory Limitations: no limitations - History of Present Illness Initial comments: 47 and female with no significant past medical history presents the emergency department with a chief complaint of possible seizure. Patient reports that she has stress-induced seizures started year ago after a significant left 1 past. She reports that she is not on any antiseizure medications due to having random occurrences. He is unsure of how long the seizure lasted for. It was unwitnessed. She quickly returned back to baseline. She reports that she went to work because she has no complaints at her knee. She denies any dizziness or lightheadedness, vision changes or vision loss, chest pain or shortness of breath, nausea or vomiting. - Related Data Home Medications Medication Instructions Recorded Confirmed Ibuprofen [Motrin Ib] 800 mg PO Q8H PRN 11/04/20 02/04/21 Previous Rx's Medication Instructions Recorded Ondansetron Odt [Zofran ODT] 4 mg PO Q8HR PRN #10 tab 09/17/22 Albuterol Inhaler [Ventolin Hfa 1 - 2 puff INHALATION Q4HR #1 each 11/20/22 Inhaler] Azithromycin [Zithromax Z Pack] 1 tab PO DIRECTED #6 tab 11/20/22 predniSONE [Deltasone] 20 mg PO BID #10 tab 11/20/22 Allergies Allergy/AdvReac Type Severity Reaction Status Date / Time latex Allergy Rash/Hives Verified 11/20/22 16:42 adhesive AdvReac Unknown Verified 11/20/22 16:42 Review of Systems ROS Statement: Those systems with pertinent positive or pertinent negative responses have been documented in the HPI. ROS Other: All systems not noted in ROS Statement are negative. Past Medical History Past Medical History: Asthma, Seizure Disorder Additional Past Medical History / Comment(s): vertigo History of Any Multi-Drug Resistant Organisms: None Reported Past Surgical History: Hysterectomy, Orthopedic Surgery Additional Past Surgical History / Comment(s): right below elbow amputation, part of tailbone removed, three knee surgeries, teeth removed Past Anesthesia/Blood Transfusion Reactions: Previous Problems w/ Anesthesia Additional Past Anesthesia/Blood Transfusion Reaction / Comment(s): Wakes up during surgery. Needs extra meds to stay down. Past Psychological History: Anxiety Smoking Status: Current every day smoker Past Alcohol Use History: Rare Past Drug Use History: Marijuana - Past Family History Mother Family Medical History: Asthma, COPD Additional Family Medical History / Comment(s): Scolosis Father Family Medical History: No Reported History General Exam - General Exam Comments Initial Comments: General: Alert, in no acute distress Head: atraumatic normocephalic. Eyes PERRL, EOMI intact, mucous membranes moist Respiratory: Lungs clear to auscultation bilaterally Cardiovascular: Heart rate regular rat and rhythm Abdominal: Soft without guarding or rebound Extremities: Normal inspection with full range of motion and normal capillary refill Neuroogic: alert and oriented 3, CN II-XII intact, able to ambulate with steady gait Skin: warm dry and intact with normal color Limitations: no limitations Course Vital Signs 03/27/23 14:11 Temperature 98.4 F Pulse Rate 67 Respiratory 16 Rate Blood Pressure 124/78 O2 Sat by Pulse 99 Oximetry - Reevaluation(s) Reevaluation #1: 03/27/23 15:45 patient re-evaluated and updated on CT results. Aware awaiting laboratory studies Reevaluation #2: 03/27/23 16:40 Attempted to re-evaluate the patient. Patient eloped AMA prior to completion of workup. Patient was ambulated with a steady gait. No focal neurologic deficits noted upon exam. Medical Decision Making - Medical Decision Making Was pt. sent in by a medical professional or institution (, PA, [employer], urgent care, hospital, or longterm...) When possible be specific @ -[No] Did you speak to anyone other than the patient for history (EMS, parent, family, police, friend...)? What history was obtained from this source @ -[No] Did you review nursing and triage notes (agree or disagree)? Why? @ -[I reviewed and agree with nursing and triage notes] Were old charts reviewed (outside hosp., previous admission, EMS record, old EKG, old radiological studies, urgent care reports/EKG's, longterm records)? Report findings @ -[No old charts were reviewed] Differential Diagnosis (chest pain, altered mental status, abdominal pain women, abdominal pain men, vaginal bleeding, weakness, fever, dyspnea, syncope, headache, dizziness, GI bleed, back pain, seizure, CVA, palpatations, mental health, musculoskeletal)? @ -[not applicable] EKG interpreted by me (3pts min.). @ -[As above] X-rays interpreted by me (1pt min.). @ -[None done] CT interpreted by me (1pt min.). @ -Yes negative for intracranial hemorrhage or mass U/S interpreted by me (1pt. min.). @ -[None done] What testing was considered but not performed or refused? (CT, X-rays, U/S, labs)? Why? @ -[None] What meds were considered but not given or refused? Why? @ -[None] Did you discuss the management of the patient with other professionals (professionals i.e. , PA, [employer], lab, RT, psych nurse, social welfare administrator, pumpman, teacher, public health officer, special education case manager)? Give summary @ -[No] Was smoking cessation discussed for >3mins.? @ -[No] Was critical care preformed (if so, how long)? @ -[No] Were there social determinants of health that impacted care today? How? (Homelessness, low income, unemployed, alcoholism, drug addiction, transportation, low edu. Level, literacy, decrease access to med. care, half-way, rehab)? @ -[No] Was there de-escalation of care discussed even if they declined (Discuss DNR or withdrawal of care, Hospice)? DNR status @ -[No] What co-morbidities impacted this encounter? (DM, HTN, Smoking, COPD, CAD, Cancer, CVA, ARF, Chemo, Hep., AIDS, mental health diagnosis, sleep apnea, morbid obesity)? @ -[None] Was patient admitted / discharged? Hospital course, mention meds given and route, prescriptions, significant lab abnormalities, going to OR and other pertinent info. @ -Left against medical advice. This is a 47-year-old female who presents the emergency department with a chief complaint of possible seizure. Patient had a thorough history and physical exam performed. Physical exam is essentially unremarkable. There are no focal neurologic deficits on exam. Patient is able to move all extremities freely with a steady gait. Patient had CT imaging which was unremarkable. CBC was resulted without any abnormalities. Patient eloped prior to completion of evaluation. Case is discussed with Ag Azul who agrees with the care Undiagnosed new problem with uncertain prognosis? @ -[No] Drug Therapy requiring intensive monitoring for toxicity (Heparin, Nitro, Insulin, Cardizem)? @ -[No] Were any procedures done? @ -[No] Diagnosis/symptom? @ -Possible Seizure - Left Against Medical Advice Acute, or Chronic, or Acute on Chronic? @ -Acute Uncomplicated (without systemic symptoms) or Complicated (systemic symptoms)? @ -[default] Side effects of treatment? @ -[No] Exacerbation, Progression, or Severe Exacerbation? @ -[No] Poses a threat to life or bodily function? How? (Chest pain, USA, AR, pneumonia, PE, COPD, DKA, ARF, appy, cholecystitis, CVA, Diverticulitis, Homicidal, Suicidal, threat to staff... and all critical care pts) @ Left AMA - Lab Data Result diagrams: 03/27/23 14:53 03/27/23 14:53 Lab Results 03/27/23 03/27/23 03/27/23 Range/Units 14:53 14:53 14:53 WBC 9.4 (3.8-10.6) k/uL RBC 4.25 (3.80-5.40) m/uL Hgb 13.7 (11.4-16.0) gm/dL Hct 41.1 (34.0-46.0) % MCV 96.7 (80.0-100.0) fL MCH 32.3 (25.0-35.0) pg MCHC 33.4 (31.0-37.0) g/dL RDW 13.1 (11.5-15.5) % Plt Count 297 (150-450) k/uL MPV 7.7 Neutrophils % 73 % Lymphocytes % 20 % Monocytes % 5 % Eosinophils % 1 % Basophils % 0 % Neutrophils # 6.9 (1.3-7.7) k/uL Lymphocytes # 1.8 (1.0-4.8) k/uL Monocytes # 0.4 (0-1.0) k/uL Eosinophils # 0.1 (0-0.7) k/uL Basophils # 0.0 (0-0.2) k/uL Sodium 138 (137-145) mmol/L Potassium 4.0 (3.5-5.1) mmol/L Chloride 101 (98-107) mmol/L Carbon Dioxide 26 (22-30) mmol/L Anion Gap 11 mmol/L BUN 18 H (7-17) mg/dL Creatinine 0.48 L (0.52-1.04) mg/dL Est GFR (CKD-EPI)AfAm >90 (>60 ml/min/1.73 sqM) Est GFR (CKD-EPI)NonAf >90 (>60 ml/min/1.73 sqM) Glucose 102 H (74-99) mg/dL Plasma Lactic Acid Breezy 0.8 (0.7-2.0) mmol/L Calcium 10.1 (8.4-10.2) mg/dL Magnesium 2.3 (1.6-2.3) mg/dL Total Bilirubin 0.9 (0.2-1.3) mg/dL AST 49 H (14-36) U/L ALT 54 H (4-34) U/L Alkaline Phosphatase 73 (38-126) U/L Total Protein 8.0 (6.3-8.2) g/dL Albumin 5.2 H (3.5-5.0) g/dL Disposition Clinical Impression: Seizure Disposition: LEFT AGAINST MEDICAL ADVICE Condition: Undetermined Is patient prescribed a controlled substance at d/c from ED?: No Referrals: Placido Jefferson MD [Primary Care Provider] - 1-2 days Time of Disposition: 16:15
== END 2023-03-27 16:21 | disposition left against medical advice (07) ==
LOC: EC 14:07
DX: G40.909 Epilepsy, unspecified, not intractable, without status epilepticus (principal); J45.909 Unspecified asthma, uncomplicated; F17.200 Nicotine dependence, unspecified, uncomplicated; F12.90 Cannabis use, unspecified, uncomplicated; Z53.29 Procedure and treatment not carried out because of patient's decision for other reasons; Z91.040 Latex allergy status; Z91.09 Other allergy status, other than to drugs and biological substances
CPT/HCPCS: 36415; 70450; 80053; 83605; 83735; 85025; 93005; 96360; 99284

== ENCOUNTER 2023-07-31 22:43 | Emergency (ER) | payer BC, OTHER ==
[2023-07-31 22:52] VITALS: RESP 18; TEMP 98.2
--- NOTE | 2023-08-01 00:28 | ED ---
General Adult HPI - General Chief complaint: Shortness of Breath Stated complaint: DRE, Possible insect bite on face Time Seen by Provider: 08/01/23 00:11 Source: patient Mode of arrival: ambulatory Limitations: no limitations - History of Present Illness Initial comments: This patient is a 47-year-old woman with history of asthma who presents to evaluation mainly of swelling to left face. She states that she had an insect bite to the left cheek. Since that time she has noticed some swelling, redness and warmth. She has not had systemic symptoms, no fever or chills. No chest pain or palpitations. She states she does have a little bit of wheeze and states that it is like her asthma is flaring up, but she declined to have nebulized treatment here. Onset/Timin -: days(s) Location: face Radiation: non-radiation Quality: burning Consistency: constant Improves with: none Worsens with: none Associated Symptoms: shortness of breath, other (Itching) Treatments Prior to Arrival: none - Related Data Home Medications Medication Instructions Recorded Confirmed Ibuprofen [Motrin Ib] 800 mg PO Q8H PRN 11/04/20 02/04/21 Previous Rx's Medication Instructions Recorded Ondansetron Odt [Zofran ODT] 4 mg PO Q8HR PRN #10 tab 09/17/22 Albuterol Inhaler [Ventolin Hfa 1 - 2 puff INHALATION Q4HR #1 each 11/20/22 Inhaler] Azithromycin [Zithromax Z Pack] 1 tab PO DIRECTED #6 tab 11/20/22 predniSONE [Deltasone] 20 mg PO BID #10 tab 11/20/22 Sulfamethox-Tmp 800-160Mg [Bactrim 2 each PO Q12HR #28 tab 08/01/23 Ds] Allergies Allergy/AdvReac Type Severity Reaction Status Date / Time latex Allergy Rash/Hives Verified 07/31/23 22:50 adhesive AdvReac Unknown Verified 07/31/23 22:50 Review of Systems ROS Statement: Those systems with pertinent positive or pertinent negative responses have been documented in the HPI. ROS Other: All systems not noted in ROS Statement are negative. Constitutional: Denies: fever, chills Eyes: Denies: eye pain, vision change Respiratory: Reports: wheezes. Denies: cough, dyspnea Cardiovascular: Denies: chest pain Skin: Reports: as per HPI, lesions Neurological: Denies: headache, weakness, numbness Past Medical History Past Medical History: Asthma, Seizure Disorder Additional Past Medical History / Comment(s): vertigo History of Any Multi-Drug Resistant Organisms: None Reported Past Surgical History: Hysterectomy, Orthopedic Surgery Additional Past Surgical History / Comment(s): right below elbow amputation, part of tailbone removed, three knee surgeries, teeth removed Past Anesthesia/Blood Transfusion Reactions: Previous Problems w/ Anesthesia Additional Past Anesthesia/Blood Transfusion Reaction / Comment(s): Wakes up during surgery. Needs extra meds to stay down. Past Psychological History: Anxiety Smoking Status: Former smoker Past Alcohol Use History: Rare Past Drug Use History: Marijuana - Past Family History Mother Family Medical History: Asthma, COPD Additional Family Medical History / Comment(s): Scolosis Father Family Medical History: No Reported History General Exam Limitations: no limitations General appearance: alert, in no apparent distress Head exam: Present: atraumatic, normocephalic Eye exam: Present: normal appearance. Absent: scleral icterus, conjunctival injection ENT exam: Present: other (Patient has pustular lesion to left cheek with small amount of erythema and warmth. No fluctuance.) Respiratory exam: Present: wheezes (Trace expiratory wheeze). Absent: respiratory distress, rales, rhonchi, stridor, accessory muscle use Cardiovascular Exam: Present: regular rate, normal rhythm, normal heart sounds. Absent: systolic murmur, diastolic murmur, rubs, gallop Skin exam: Present: warm, dry, intact, normal color, other (See above) Course Vital Signs 07/31/23 07/31/23 07/31/23 22:48 23:54 23:55 Temperature 98.2 F Pulse Rate 80 63 Respiratory 18 18 18 Rate Blood Pressure 128/73 101/78 O2 Sat by Pulse 99 98 Oximetry Medical Decision Making - Medical Decision Making Was pt. sent in by a medical professional or institution (ELVIRA Mack, PROFILE STITCHING MACHINE OPERATOR, urgent care, hospital, or shelter...) When possible be specific @ -[No] Did you speak to anyone other than the patient for history (EMS, parent, family, police, friend...)? What history was obtained from this source @ -[No] Did you review nursing and triage notes (agree or disagree)? Why? @ -[I reviewed and agree with nursing and triage notes] Were old charts reviewed (outside hosp., previous admission, EMS record, old EKG, old radiological studies, urgent care reports/EKG's, shelter records)? Report findings @ -[No old charts were reviewed] Differential Diagnosis (chest pain, altered mental status, abdominal pain women, abdominal pain men, vaginal bleeding, weakness, fever, dyspnea, syncope, headache, dizziness, GI bleed, back pain, seizure, CVA, palpatations, mental health, musculoskeletal)? @ -[Parental diagnosis is insect bite versus small wound infection. EKG interpreted by me (3pts min.). @ -[As above] X-rays interpreted by me (1pt min.). @ -[None done] CT interpreted by me (1pt min.). @ -[None done] U/S interpreted by me (1pt. min.). @ -[None done] What testing was considered but not performed or refused? (CT, X-rays, U/S, labs)? Why? @ -[None] What meds were considered but not given or refused? Why? @ -[None] Did you discuss the management of the patient with other professionals (professionals i.e. , PA, PROFILE STITCHING MACHINE OPERATOR, lab, RT, psych nurse, web content & social media manager, motion picture projectionist apprentice, teacher, chief technical officer, case operator)? Give summary @ -[No] Was smoking cessation discussed for >3mins.? @ -[No] Was critical care preformed (if so, how long)? @ -[No] Were there social determinants of health that impacted care today? How? (Homelessness, low income, unemployed, alcoholism, drug addiction, transportation, low edu. Level, literacy, decrease access to med. care, usp, rehab)? @ -[No] Was there de-escalation of care discussed even if they declined (Discuss DNR or withdrawal of care, Hospice)? DNR status @ -[No] What co-morbidities impacted this encounter? (DM, HTN, Smoking, COPD, CAD, Cancer, CVA, ARF, Chemo, Hep., AIDS, mental health diagnosis, sleep apnea, morbid obesity)? @ -[None] Was patient admitted / discharged? Hospital course, mention meds given and route, prescriptions, significant lab abnormalities, going to OR and other pertinent info. @ -[Patient is 47-year-old woman with small pustular lesion to left cheek. She is started on antibiotic course. The patient did believe that she was having mild asthma flare but she felt she had waited long enough did not want nebulized treatment here. She will take medications and follow-up. Discussed return parameters. Undiagnosed new problem with uncertain prognosis? @ -[No] Drug Therapy requiring intensive monitoring for toxicity (Heparin, Nitro, Insulin, Cardizem)? @ -[No] Were any procedures done? @ -[No] Diagnosis/symptom? @ -[Insect bite left cheek with mild infection Acute, or Chronic, or Acute on Chronic? @ -[Acute Uncomplicated (without systemic symptoms) or Complicated (systemic symptoms)? @ -[Uncomplicated Side effects of treatment? @ -[No] Exacerbation, Progression, or Severe Exacerbation? @ -[No] Poses a threat to life or bodily function? How? (Chest pain, [place], [place], pneumonia, PE, COPD, DKA, ARF, appy, cholecystitis, CVA, Diverticulitis, Homicidal, Suicidal, threat to staff... and all critical care pts) @ -[No] Disposition Clinical Impression: Pustule Disposition: HOME SELF-CARE Condition: Good Instructions (If sedation given, give patient instructions): Cellulitis (ED) Prescriptions: Sulfamethox-Tmp 800-160Mg [Bactrim Ds] 2 each PO Q12HR #28 tab Is patient prescribed a controlled substance at d/c from ED?: No Referrals: Placido Jefferson MD [Primary Care Provider] - 1-2 days
[2023-08-01] MEDS: SULFAMETHOX-TMP 800-160MG 1 EACH TAB PO STA (00:42)
[2023-08-01] MEDS: BACITRACIN OINT 1 EACH PACKET TOPICAL ONE (00:42)
[2023-08-01 01:09] VITALS: BP 101/78; PULSE 63
== END 2023-08-01 00:46 | disposition home or self-care (01) ==
LOC: EC 22:43
DX: S00.86XA Insect bite (nonvenomous) of other part of head, initial encounter (principal); L08.9 Local infection of the skin and subcutaneous tissue, unspecified; Z91.040 Latex allergy status; Z91.09 Other allergy status, other than to drugs and biological substances; Z87.891 Personal history of nicotine dependence; W57.XXXA Bitten or stung by nonvenomous insect and other nonvenomous arthropods, initial encounter
CPT/HCPCS: 99284

== ENCOUNTER → 2023-09-02 | Outpatient (CLI) | payer BC ==
--- NOTE | 2023-09-02 11:36 | CT ---
EXAMINATION TYPE: CT chest w con CT DLP: 285 mGycm, Automated exposure control for dose reduction was used. DATE OF EXAM: 09/02/2023 10:47 AM COMPARISON: Chest radiograph 11/20/2022 .. CLINICAL INDICATION:Female, 47 years old with history of J44.9 COPD R06.02 shortness of breath; PHH, COPD, SOB TECHNIQUE: Multiple axial images were obtained through the chest. Sagittal and coronal reformats were created for review. Contrast used:100 mL of Isovue 300 with IV Contrast (None if empty) Oral contrast used: (None if empty) FINDINGS: LUNGS/ PLEURA: Lungs appear hyperinflated. Diaphragms are flat. The lung parenchyma appears grossly u nremarkable. AIRWAY: Patent and unremarkable. HEART: Size within normal limits. MEDIASTINUM: No gross evidence of adenopathy. VASCULATURE: No aortic aneurysm. MUSCULOSKELETAL: Soft tissues: Bilateral breast implants. SOFT TISSUES/LYMPH NODES: Unremarkable. LOWER NECK: No significant findings. UPPER ABDOMEN: No significant findings. IMPRESSION: Hyperinflation suggesting COPD. No acute process. Follow up recommendations for incidental pulmonary nodules, if there are any, are per [employer] or [employer]. https://radiopaedia.org/articles/[email or web address]?lang=us
--- NOTE | 2023-09-02 13:32 | MM ---
Reason for Exam: Screening (asymptomatic). Last mammogram was performed 7 year(s) and 9 month(s) ago. Patient History: Menarche at age 14. First Full-Term at age 21. Hysterectomy at age 32. Mother had breast cancer, age 40. Risk Values: Chantelle 5 year model risk: 1.6%. NCI Lifetime model risk: 17.3%. Prior Study Comparison: 12/13/2015 Bilateral Screening Mammogram, [facility]. Tissue Density: The breasts are extremely dense, which lowers the sensitivity of mammography. Findings: Analyzed By CAD. Bilateral breast implants appear intact. Right breast: There is no suspicious group of microcalcifications or new suspicious mass. Left breast: There is no suspicious group of microcalcifications or new suspicious mass. Overall Assessment: Negative, BI-RAD 1 Management: Screening Mammogram of both breasts in [address] [facility] will attempt to contact patient to return for supplemental views and ultrasound if indicated. Patient should continue monthly self-breast exams. A clinical breast exam by your physician is recommended on an annual basis. This exam should not preclude additional follow-up of suspicious palpable abnormalities. Note on Chantelle scores and lifetime risk: 1. A Chantelle score greater than 3% is considered moderate risk. If this is the case, consider specialist referral to assess eligibility for a risk reducing agent. 2. If overall lifetime risk for the development of breast cancer is 20% or higher, the patient may qualify for future screening with alternating mammogram and breast MRI. Electronically signed and approved by: Tae Grigsby DO
== END | disposition home or self-care (01) ==
LOC: RADCTMAIN 10:07
PROVIDERS: ATTEND Family Medicine
DX: Z12.31 Encounter for screening mammogram for malignant neoplasm of breast (principal); J44.9 Chronic obstructive pulmonary disease, unspecified; R06.02 Shortness of breath; Z80.3 Family history of malignant neoplasm of breast; Z98.82 Breast implant status
CPT/HCPCS: 77067; 77063; 71260; Q9967

== ENCOUNTER → 2023-10-19 | Outpatient (CLI) | payer BC ==
--- NOTE | 2023-10-19 14:12 | CT ---
EXAMINATION TYPE: CT soft tissue neck w con CT DLP: 261 mGycm, Automated exposure control for dose reduction was used. DATE OF EXAM: 10/19/2023 1:05 PM COMPARISON: . CLINICAL INDICATION:Female, 48 years old with history of R49.0 dysphonia; PHH, Bronchitis x 1 year TECHNIQUE: Standard enhanced CT of the neck. Axial sections with coronal and sagittal reformats were obtained. Contrast used:100ml mL of Isovue 300 with IV Contrast, (None if empty) Oral contrast used: (None if empty) FINDINGS: Brain: Visualized portions are grossly unremarkable. Orbits: Unremarkable Sinuses: Grossly unremarkable. Spaces of the neck: Clear and symmetric. Musculoskeletal: No acute osseous pathology. Lymph nodes: No Lymph nodes are identified which would be pathologic by size criteria. Vascular structures: Visualized major arteries are patent without evidence of aneurysm. Thoracic Inlet/airway: Airway is patent. The lung apices are clear. Soft tissues/Thyroid: Thyroid and remainder of the soft tissues are unremarkable. Other: none. IMPRESSION 1. No definite evidence for abscess or significant abnormality. No supraglottic, infraglottic or phar yngeal abnormalities.
== END | disposition home or self-care (01) ==
LOC: RADCTMAIN 12:41
PROVIDERS: ATTEND Otolaryngology
DX: R49.0 Dysphonia (principal)
CPT/HCPCS: 70491; Q9967

== ENCOUNTER 2023-11-25 13:27 | Emergency (ER) | payer BC ==
[2023-11-25 13:34] VITALS: BP 147/81; TEMP 98.1
[2023-11-25 14:03] LABS: Basophils # (A) 0.1 k/uL (0-0.2); Basophils % (A) 1 %; Eosinophils # (A) 0.2 k/uL (0-0.7); Eosinophils % (A) 2 %; HCT 38.8 % (34.0-46.0); HGB 13.2 gm/dL (11.4-16.0); Lymphocytes # (A) 2.1 k/uL (1.0-4.8); Lymphocytes % (A) 30 %; MCH 32.8 pg (25.0-35.0); MCHC 34.1 g/dL (31.0-37.0); MCV 96.2 fL (80.0-100.0); Mean Platelet Volume 8.2; Monocytes # (A) 0.3 k/uL (0-1.0); Monocytes % (A) 4 %; Neutrophils # (A) 4.5 k/uL (1.3-7.7); Neutrophils % (A) 62 %; Platelet Count 318 k/uL (150-450); RBC 4.03 m/uL (3.80-5.40); RDW 12.7 % (11.5-15.5); WBC 7.2 k/uL (3.8-10.6)
--- NOTE | 2023-11-25 14:20 | ED ---
General Adult HPI - General Source: patient, RN notes reviewed Mode of arrival: ambulatory Limitations: no limitations <Zeferino Blair - Last Filed: 11/25/23 14:19> <Che Holbrook - Last Filed: 11/25/23 19:48> - General Chief complaint: Shortness of Breath Stated complaint: SOB/almost passed out Time Seen by Provider: 11/25/23 13:46 - History of Present Illness Initial comments: Quick [id number] female presents emergency department complaint shortness of breath. Patient states that she has been following up with pulmonary, cardiology and ENT regarding chronic shortness of breath congestion which she s tates she been diagnosed with chronic bronchitis. Patient is in the midst of quitting smoking. Patient states she became short of breath, dizziness and nearly passed out today. (Zeferino Blair) Patient presents today for shortness of breath x 4 months. States that she has b een seen in the ED in the past for this, saw pulmnology last Wednesday and was told she has COPD and only "40% lung function". Patient states that had difficulty sleeping last night and feels like she cannot get a deep breath in or out. Has been prescribed steroids and an inhaler without relief of her symptoms. States she has had chest pain her "whole life" and no new chest pain today. Is a current smoker and states that she is not quitting because she is "a dying anyway". Denies hemoptysis or cough productive of sputum, lower extremity swelling or history of prior blood clots. Is not on oral contraceptives or hormone replacement therapy. No history of cancer. No recent travel surgeries or hospitalizations. (Che Holbrook) - Related Data Home Medications Medication Instructions Recorded Confirmed Ibuprofen [Motrin Ib] 800 mg PO Q8H PRN 11/04/20 02/04/21 Previous Rx's Medication Instructions Recorded Ondansetron Odt [Zofran ODT] 4 mg PO Q8HR PRN #10 tab 09/17/22 Albuterol Inhaler [Ventolin Hfa 1 - 2 puff INHALATION Q4HR #1 each 11/20/22 Inhaler] Azithromycin [Zithromax Z Pack] 1 tab PO DIRECTED #6 tab 11/20/22 predniSONE [Deltasone] 20 mg PO BID #10 tab 11/20/22 Sulfamethox-Tmp 800-160Mg [Bactrim 2 each PO Q12HR #28 tab 08/01/23 Ds] Allergies Allergy/AdvReac Type Severity Reaction Status Date / Time latex Allergy Rash/Hives Verified 11/25/23 13:34 adhesive AdvReac Unknown Verified 11/25/23 13:34 Review of Systems ROS Other: All systems not noted in ROS Statement are negative. <Zeferino Blair - Last Filed: 11/25/23 14:19> ROS Other: All systems not noted in ROS Statement are negative. Constitutional: Denies: fever, chills Respiratory: Reports: cough, dyspnea. Denies: wheezes, hemoptysis Cardiovascular: Denies: chest pain (Chronic chest pain but no new chest pain), palpitations, edema <Che Holbrook - Last Filed: 11/25/23 19:48> ROS Statement: Those systems with pertinent positive or pertinent negative responses have been documented in the HPI. Past Medical History Past Medical History: Asthma, Seizure Disorder Additional Past Medical History / Comment(s): vertigo History of Any Multi-Drug Resistant Organisms: None Reported Past Surgical History: Hysterectomy, Orthopedic Surgery Additional Past Surgical History / Comment(s): right below elbow amputation, part of tailbone removed, three knee surgeries, teeth removed Past Anesthesia/Blood Transfusion Reactions: Previous Problems w/ Anesthesia Additional Past Anesthesia/Blood Transfusion Reaction / Comment(s): Wakes up during surgery. Needs extra meds to stay down. Past Psychological History: Anxiety Smoking Status: Former smoker Past Alcohol Use History: Rare Past Drug Use History: Marijuana - Past Family History Mother Family Medical History: Asthma, COPD Additional Family Medical History / Comment(s): Scolosis Father Family Medical History: No Reported History <Zeferino Blair - Last Filed: 11/25/23 14:19> General Exam Limitations: no limitations <Zeferino Blair - Last Filed: 11/25/23 14:19> <Che Holbrook - Last Filed: 11/25/23 19:48> - General Exam Comments Initial Comments: Visual Physical Exam Vital signs reviewed General: Well-appearing, nontoxic, no acute distress. Head: Normocephalic, atraumatic Eyes: PERRLA, EOMI ENT: Airway patent Chest: Nonlabored breathing Skin: No visual rash, normal skin tone Neuro: Alert and oriented 3 Musculoskeletal: No gross abnormalities (Zeferino Blair) PE: CONSTITUTIONAL: [no apparent distress, well appearing, nontoxic] SKIN: [warm, dry, no jaundice, hives or petechiae] EYES:[ pupils are equally round, extraocular movements intact without nystagmus, clear conjunctiva, non-icteric sclera] HENT: [normocephalic, atraumatic, dry mucus membranes, oropharynx clear without exudates] NECK: , [Full range of motion, normal appearance, no thyromegaly or masses palpated] PULMONARY: [clear to auscultation without wheezes, rhonchi, or rales, decreased excursion, no accessory muscle use and no stridor] CARDIOVASCULAR:[ regular rate, rhythm, normal S1 and S2. No appreciated murmurs, rubs or gallops. Strong radial pulses with intact distal perfusion. No lower extremity edema] GASTROINTESTINAL: [soft, non-tender, non-distended, no palpable masses, no rebound or guarding. No hepatosplenomegaly] MUSCULOSKELETAL: [Extremities have no gross deformity, no edema, redness, or swelling. No calf swelling ot TTP. ] NEUROLOGIC: [_a/o x 3, GCS 15, normal mentation and speech. Moves all extremities x 4 without motor or sensory deficit] PSYCHIATRIC:[ _normal mood and affect, thought process is clear and linear] (Che Holbrook) Course Vital Signs 11/25/23 11/25/23 13:32 15:17 Temperature 98.1 F Pulse Rate 52 L 84 Respiratory 22 18 Rate Blood Pressure 147/81 O2 Sat by Pulse 100 98 Oximetry Medical Decision Making - Lab Data Result diagrams: 11/25/23 13:53 <Zeferino Blair - Last Filed: 11/25/23 14:19> - Lab Data Result diagrams: 11/25/23 13:53 11/25/23 13:53 <Che Holbrook - Last Filed: 11/25/23 19:48> - Medical Decision Making I completed the quick note portion of this chart signed Zeferino Blair PA-C (Zeferino Blair) Was pt. sent in by a medical professional or institution (, PA, APARTMENT MAINTENANCE TECHNICIAN, urgent care, hospital, or correction...) When possible be specific @ -No Did you speak to anyone other than the patient for history (EMS, parent, family, police, friend...)? What history was obtained from this source @ -No Did you review nursing and triage notes (agree or disagree)? Why? @ -I reviewed and agree with nursing and triage notes Were old charts reviewed (outside hosp., previous admission, EMS record, old EKG, old radiological studies, urgent care reports/EKG's, correction records)? Report findings @ -CT chest performed 09/02/23, no acute process Differential Diagnosis (chest pain, altered mental status, abdominal pain women, abdominal pain men, vaginal bleeding, weakness, fever, dyspnea, syncope, headache, dizziness, GI bleed, back pain, seizure, CVA, palpatations, mental health, musculoskeletal)? @ -Differential diagnosis remains broad however top considerations include COPD exacerbation, pneumonia, viral infection, arrhythmia, CHF, ACS, anxiety, this is not all inclusive EKG interpreted by me (3pts min.). @ -As above X-rays interpreted by me (1pt min.). @ -In my assessment shows mild hyperinflation, no consolidations cardiomegalyor other acute process CT interpreted by me (1pt min.). @ -None done U/S interpreted by me (1pt. min.). @ -None done What testing was considered but not performed or refused? (CT, X-rays, U/S, labs)? Why? @ EKG however patient declined and requested discharge What meds were considered but not given or refused? Why? @ -Offered duonebs however patient declined and requested discharge Did you discuss the management of the patient with other professionals (professionals i.e. , PA, APARTMENT MAINTENANCE TECHNICIAN, lab, RT, psych nurse, social work faculty member, maid cleaning cooking, teacher, chief investment officer, pillowcase maker)? Give summary @ -No Was smoking cessation discussed for >3mins.? @ -Yes, attempted to discuss however patient adamant that she will continue smoking Was critical care preformed (if so, how long)? @ -No Were there social determinants of health that impacted care today? How? (Homelessness, low income, unemployed, alcoholism, drug addiction, transportation, low edu. Level, literacy, decrease access to med. care, long-term, rehab)? @ -No Was there de-escalation of care discussed even if they declined (Discuss DNR or withdrawal of care, Hospice)? DNR status @ -No What co-morbidities impacted this encounter? (DM, HTN, Smoking, COPD, CAD, Cancer, CVA, ARF, Chemo, Hep., AIDS, mental health diagnosis, sleep apnea, morbid obesity)? @ -COPD Was patient admitted / discharged? Hospital course, mention meds given and route, prescriptions, significant lab abnormalities, going to OR and other pertinent info. @ -Hospital course Patient is a 48 y/o female presenting for shortness of breath x4 months, worse in the last week. Recently seen by pulmonology and dx'd with COPD. Reviewed triage orders and results as ordered by triage provider. I see no acute process, labs reassuring. Of note an EKG was not obtained. On my assessment patient is resting comfortably though is anxious appearing. Rapid speech. De creased excursion on lung exam otherwise lungs clear to auscultation bilaterally. Patient has an appoint with her printed circuit boards plasma etcher in the morning. I offered patient DuoNeb treatments and discussed the need for an EKG. Offered viral testing. At this point patient declined both and requested discharge. Patient discharged AMA. Undiagnosed new problem with uncertain prognosis? @ -No Drug Therapy requiring intensive monitoring for toxicity (Heparin, Nitro, Insulin, Cardizem)? @ -No Were any procedures done? @ -No Diagnosis/symptom? @ -Shortness of breath Acute, or Chronic, or Acute on Chronic? @ -Acute on chronic Uncomplicated (without systemic symptoms) or Complicated (systemic symptoms)? @ -complicated Side effects of treatment? @ -No Exacerbation, Progression, or Severe Exacerbation? @ -No Poses a threat to life or bodily function? How? (Chest pain, [place], [place], pneumonia, PE, COPD, DKA, ARF, appy, cholecystitis, CVA, Diverticulitis, Homicidal, Suicidal, threat to staff... and all critical care pts) @ -Unlikely (Che Holbrook) - Lab Data Lab Results 11/25/23 11/25/23 11/25/23 Range/Units 13:53 13:53 13:53 WBC 7.2 (3.8-10.6) k/uL RBC 4.03 (3.80-5.40) m/uL Hgb 13.2 (11.4-16.0) gm/dL Hct 38.8 (34.0-46.0) % MCV 96.2 (80.0-100.0) fL MCH 32.8 (25.0-35.0) pg MCHC 34.1 (31.0-37.0) g/dL RDW 12.7 (11.5-15.5) % Plt Count 318 (150-450) k/uL MPV 8.2 Neutrophils % 62 % Lymphocytes % 30 % Monocytes % 4 % Eosinophils % 2 % Basophils % 1 % Neutrophils # 4.5 (1.3-7.7) k/uL Lymphocytes # 2.1 (1.0-4.8) k/uL Monocytes # 0.3 (0-1.0) k/uL Eosinophils # 0.2 (0-0.7) k/uL Basophils # 0.1 (0-0.2) k/uL PT 11.5 (10.0-12.5) sec INR 1.1 (<1.2) APTT 25.3 (22.0-30.0) sec Sodium 137 (137-145) mmol/L Potassium 3.9 (3.5-5.1) mmol/L Chloride 109 H (98-107) mmol/L Carbon Dioxide 22 (22-30) mmol/L Anion Gap 6 mmol/L BUN 17 (7-17) mg/dL Creatinine 0.48 L (0.52-1.04) mg/dL Est GFR (CKD-EPI)AfAm >90 (>60 ml/min/1.73 sqM) Est GFR (CKD-EPI)NonAf >90 (>60 ml/min/1.73 sqM) Glucose 91 (74-99) mg/dL Calcium 9.1 (8.4-10.2) mg/dL Total Bilirubin 1.3 (0.2-1.3) mg/dL AST 25 (14-36) U/L ALT 19 (4-34) U/L Alkaline Phosphatase 56 (38-126) U/L Troponin I (0.000-0.034) ng/mL NT-Pro-B Natriuret Pep 83 pg/mL Total Protein 6.2 L (6.3-8.2) g/dL Albumin 4.1 (3.5-5.0) g/dL 11/25/23 Range/Units 13:53 WBC (3.8-10.6) k/uL RBC (3.80-5.40) m/uL Hgb (11.4-16.0) gm/dL Hct (34.0-46.0) % MCV (80.0-100.0) fL MCH (25.0-35.0) pg MCHC (31.0-37.0) g/dL RDW (11.5-15.5) % Plt Count (150-450) k/uL MPV Neutrophils % % Lymphocytes % % Monocytes % % Eosinophils % % Basophils % % Neutrophils # (1.3-7.7) k/uL Lymphocytes # (1.0-4.8) k/uL Monocytes # (0-1.0) k/uL Eosinophils # (0-0.7) k/uL Basophils # (0-0.2) k/uL PT (10.0-12.5) sec INR (<1.2) APTT (22.0-30.0) sec Sodium (137-145) mmol/L Potassium (3.5-5.1) mmol/L Chloride (98-107) mmol/L Carbon Dioxide (22-30) mmol/L Anion Gap mmol/L BUN (7-17) mg/dL Creatinine (0.52-1.04) mg/dL Est GFR (CKD-EPI)AfAm (>60 ml/min/1.73 sqM) Est GFR (CKD-EPI)NonAf (>60 ml/min/1.73 sqM) Glucose (74-99) mg/dL Calcium (8.4-10.2) mg/dL Total Bilirubin (0.2-1.3) mg/dL AST (14-36) U/L ALT (4-34) U/L Alkaline Phosphatase (38-126) U/L Troponin I <0.012 (0.000-0.034) ng/mL NT-Pro-B Natriuret Pep pg/mL Total Protein (6.3-8.2) g/dL Albumin (3.5-5.0) g/dL Disposition <Zeferino Blair - Last Filed: 11/25/23 14:19> Is patient prescribed a controlled substance at d/c from ED?: No <Che Holbrook - Last Filed: 11/25/23 19:48> Clinical Impression: Shortness of breath Disposition: LEFT AGAINST MEDICAL ADVICE Condition: Good Referrals: Placido Jefferson MD [Primary Care Provider] - 1-2 days
[2023-11-25 14:26] LABS: INR 1.1 (<1.2); Partial Thromboplastin Time 25.3 sec (22.0-30.0); Prothrombin Time 11.5 sec (10.0-12.5)
[2023-11-25 14:35] LABS: ALT 19 U/L (4-34); AST 25 U/L (14-36); African American GFR (CKD) >90 (>60 ml/min/1.73 sqM); Albumin 4.1 g/dL (3.5-5.0); Alkaline Phosphatase 56 U/L (38-126); Anion Gap 6 mmol/L; Blood Urea Nitrogen 17 mg/dL (7-17); Calcium 9.1 mg/dL (8.4-10.2); Carbon Dioxide 22 mmol/L (22-30); Chloride 109 mmol/L (98-107); Glucose 91 mg/dL (74-99); Non-African American GFR(CKD) >90 (>60 ml/min/1.73 sqM); Potassium 3.9 mmol/L (3.5-5.1); Sodium 137 mmol/L (137-145); Total Bilirubin 1.3 mg/dL (0.2-1.3); Total Protein 6.2 g/dL (6.3-8.2)
[2023-11-25 14:44] LABS: NT-Pro-B-Type Natriuretic Pept 83 pg/mL
--- NOTE | 2023-11-25 15:02 | XR ---
EXAMINATION TYPE: XR chest 2V DATE OF EXAM: 11/25/2023 COMPARISON: 11/20/2022 HISTORY: 48 year-old female shortness of breath, difficulty breathing TECHNIQUE: PA and lateral views FINDINGS: The cardiomediastinal silhouette, aorta, and pulmonary vasculature are within normal limits. Lungs an d pleural spaces are clear. Loop recorder device projecting over the left paramedian anterior chest. IMPRESSION: No acute cardiopulmonary process.
[2023-11-25 15:23] VITALS: PULSE 84; RESP 18
== END 2023-11-25 20:00 | disposition left against medical advice (07) ==
LOC: EC 13:27
DX: R06.02 Shortness of breath
CPT/HCPCS: 36415; 71046; 80053; 83880; 84484; 85025; 85610; 85730; 99285

== ENCOUNTER 2024-02-17 09:39 | Emergency (ER) | payer BC, OTHER ==
--- NOTE | 2024-02-17 10:57 | ED ---
Fall HPI - General Chief Complaint: Fall Stated Complaint: L shoulder pain Time Seen by Provider: 02/17/24 09:51 Source: patient, RN notes reviewed Mode of arrival: ambulatory - History of Present Illness Initial Comments: This is a 48-year-old female is presenting to the emergency department chief complaint of left shoulder pain. Patient states that approximately 6 to 7 weeks ago she tripped down a few of her stairs and fell onto her left shoulder. Patient denies hitting head or loss conscious time of this event. Patient states that over this period time she has been experiencing persistent pain in her left shoulder will radiate into her neck and into her neck. She denies previous surgeries of her left shoulder. She has been taking Tylenol Motrin at home with minimal relief. denies chest pain, shortness of breath, difficulty breathing. - Related Data Home Medications Medication Instructions Recorded Confirmed Ibuprofen [Motrin Ib] 800 mg PO Q8H PRN 11/04/20 02/04/21 Previous Rx's Medication Instructions Recorded Ondansetron Odt [Zofran ODT] 4 mg PO Q8HR PRN #10 tab 09/17/22 Albuterol Inhaler [Ventolin Hfa 1 - 2 puff INHALATION Q4HR #1 each 11/20/22 Inhaler] Azithromycin [Zithromax Z Pack] 1 tab PO DIRECTED #6 tab 11/20/22 predniSONE [Deltasone] 20 mg PO BID #10 tab 11/20/22 Sulfamethox-Tmp 800-160Mg [Bactrim 2 each PO Q12HR #28 tab 08/01/23 Ds] Ketorolac [Toradol] 10 mg PO Q8HR #15 tab 02/17/24 Allergies Allergy/AdvReac Type Severity Reaction Status Date / Time latex Allergy Rash/Hives Verified 11/25/23 13:34 adhesive AdvReac Unknown Verified 11/25/23 13:34 Review of Systems ROS Statement: Those systems with pertinent positive or pertinent negative responses have been documented in the HPI. ROS Other: All systems not noted in ROS Statement are negative. Past Medical History Past Medical History: Asthma, Seizure Disorder Additional Past Medical History / Comment(s): vertigo History of Any Multi-Drug Resistant Organisms: None Reported Past Surgical History: Hysterectomy, Orthopedic Surgery Additional Past Surgical History / Comment(s): right below elbow amputation, part of tailbone removed, three knee surgeries, teeth removed Past Anesthesia/Blood Transfusion Reactions: Previous Problems w/ Anesthesia Additional Past Anesthesia/Blood Transfusion Reaction / Comment(s): Wakes up during surgery. Needs extra meds to stay down. Past Psychological History: Anxiety Smoking Status: Former smoker Past Alcohol Use History: Rare Past Drug Use History: Marijuana - Past Family History Mother Family Medical History: Asthma, COPD Additional Family Medical History / Comment(s): Scolosis Father Family Medical History: No Reported History General Exam Limitations: no limitations General appearance: alert, in no apparent distress Eye exam: Present: normal appearance, PERRL, EOMI. Absent: scleral icterus, conjunctival injection, periorbital swelling Neck exam: Present: normal inspection. Absent: tenderness, meningismus, lymphadenopathy Respiratory exam: Present: normal lung sounds bilaterally. Absent: respiratory distress, wheezes, rales, rhonchi, stridor Cardiovascular Exam: Present: regular rate, normal rhythm, normal heart sounds. Absent: systolic murmur, diastolic murmur, rubs, gallop, clicks GI/Abdominal exam: Present: soft, normal bowel sounds. Absent: distended, tenderness, guarding, rebound, rigid Left Shoulder Exam: Present: normal inspection, full ROM (with tenderness). Absent: swelling, abrasion, ecchymosis, deformity, crepitus Neuro motor exam: Present: wrist extension intact, thumb opposition intact Vascular: Present: normal capillary refill. Absent: vascular compromise Back exam: Present: normal inspection Neurological exam: Present: alert, oriented X3, CN II-XII intact Skin exam: Present: warm, dry, intact, normal color. Absent: rash Course Vital Signs 02/17/24 02/17/24 09:51 11:55 Temperature 97.6 F 97.2 F L Pulse Rate 66 68 Respiratory 12 18 Rate Blood Pressure 118/80 120/78 O2 Sat by Pulse 95 95 Oximetry Medical Decision Making - Medical Decision Making Was pt. sent in by a medical professional or institution (, PA, LAWN CARE SPECIALIST, urgent care, hospital, or shelter...) When possible be specific @ -No Did you speak to anyone other than the patient for history (EMS, parent, family, police, friend...)? What history was obtained from this source @ -No Did you review nursing and triage notes (agree or disagree)? Why? @ -I reviewed and agree with nursing and triage notes Were old charts reviewed (outside hosp., previous admission, EMS record, old EKG, old radiological studies, urgent care reports/EKG's, shelter records)? Report findings @ -No old charts were reviewed Differential Diagnosis (chest pain, altered mental status, abdominal pain women, abdominal pain men, vaginal bleeding, weakness, fever, dyspnea, syncope, headache, dizziness, GI bleed, back pain, seizure, CVA, palpatations, mental health, musculoskeletal)? @ -Differential Musculoskeletal Muscular strain, contusion, ligament sprain, fracture, arthritis, septic arthritis, bursitis, cellulitis, muscle spasm, nerve compression, DVT, arterial occlusion, herpes zoster, electrolyte abnormality, tumor.... This is not meant to be in all inclusive list EKG interpreted by me (3pts min.). @ -As above X-rays interpreted by me (1pt min.). @ -Stray of the left shoulder unremarkable for acute process. Chest x-ray unremarkable for acute cardiopulmonary process or disease. CT interpreted by me (1pt min.). @ -None done U/S interpreted by me (1pt. min.). @ -None done What testing was considered but not performed or refused? (CT, X-rays, U/S, labs)? Why? @ -None What meds were considered but not given or refused? Why? @ -None Did you discuss the management of the patient with other professionals (professionals i.e. , PA, LAWN CARE SPECIALIST, lab, RT, psych nurse, professor of social work, caregiver assisted living, teacher, fisheries officer, pillowcase cutter)? Give summary @ -No Was smoking cessation discussed for >3mins.? @ -No Was critical care preformed (if so, how long)? @ -No Were there social determinants of health that impacted care today? How? (Homelessness, low income, unemployed, alcoholism, drug addiction, transportation, low edu. Level, literacy, decrease access to med. care, fdc, rehab)? @ -No Was there de-escalation of care discussed even if they declined (Discuss DNR or withdrawal of care, Hospice)? DNR status @ -No What co-morbidities impacted this encounter? (DM, HTN, Smoking, COPD, CAD, Cancer, CVA, ARF, Chemo, Hep., AIDS, mental health diagnosis, sleep apnea, morbid obesity)? @ -None Was patient admitted / discharged? Hospital course, mention meds given and route, prescriptions, significant lab abnormalities, going to OR and other pertinent info. @ -discharge. 48-year-old female with fall and left shoulder injury. On evaluation patient noted to have tenderness to range of motion of the left shoulder. No neurovascular deficits. Strength intact. He is provided with dose of Toradol. X-rays unremarkable. He is provided with referral to environmental protection specialist for further evaluation for potential soft tissue injury that was unable to be observed on x-ray imaging. She is provided with prescription for Toradol to take strictly as needed and do not combine this medication with Motrin. She is also provided with a sling however instructed to continue range of motion exercises to minimize further injury. Discussed with Dr. Benavides Undiagnosed new problem with uncertain prognosis? @ -No Drug Therapy requiring intensive monitoring for toxicity (Heparin, Nitro, Insulin, Cardizem)? @ -No Were any procedures done? @ -No Diagnosis/symptom? @ -Left shoulder pain Acute, or Chronic, or Acute on Chronic? @ -Acute Uncomplicated (without systemic symptoms) or Complicated (systemic symptoms)? @ -uncomplicated Side effects of treatment? @ -No Exacerbation, Progression, or Severe Exacerbation? @ -No Poses a threat to life or bodily function? How? (Chest pain, [place], [place], pneumonia, PE, COPD, DKA, ARF, appy, cholecystitis, CVA, Diverticulitis, Homicidal, Suicidal, threat to staff... and all critical care pts) @ -No Disposition Clinical Impression: Left shoulder pain, Fall Disposition: HOME SELF-CARE Condition: Good Instructions (If sedation given, give patient instructions): Shoulder Pain (ED) Additional Instructions: Please return to the Emergency Department if symptoms worsen or any other concerns. Continue supportive treatment at home. Use sling only as needed. Is recommend that you continue range of motion exercises with your shoulder. Follow-up with provide environmental protection specialist for further evaluation. Prescriptions: Ketorolac [Toradol] 10 mg PO Q8HR #15 tab Is patient prescribed a controlled substance at d/c from ED?: No Referrals: Placido Jefferson MD [Primary Care Provider] - 1-2 days Juan Rich MD [STAFF PHYSICIAN] - 1-2 days Time of Disposition: 11:41
[2024-02-17] MEDS: KETOROLAC 15 MG/ML 1 ML VIAL IM STA (11:00)
--- NOTE | 2024-02-17 11:21 | XR ---
EXAMINATION TYPE: XR chest 2V DATE OF EXAM: 02/17/2024 CLINICAL HISTORY: Fall pain TECHNIQUE: Frontal and lateral views of the chest are obtained. COMPARISON: 11/25/2023 FINDINGS: There is no focal air space opacity, pleural effusion, or pneumothorax seen. The cardiac silhouette size is within normal limits. The osseous structures are intact. IMPRESSION: No acute cardiopulmonary process. [facility], , 02/17/2024 11:19 AM
--- NOTE | 2024-02-17 11:24 | XR ---
EXAMINATION TYPE: XR shoulder complete LT DATE OF EXAM: 02/17/2024 11:16 AM COMPARISON: None. CLINICAL INDICATION: Female, 48 years old with history of fall, pain, injury, pain TECHNIQUE: XR shoulder complete LT views were obtained FINDINGS: There is no acute fracture/dislocation evident. The acromioclavicular and glenohumeral joint spaces appear within normal limits. The visualized ribs are intact and unremarkable. IMPRESSION: There is no acute fracture or dislocation. [facility], , 02/17/2024 11:22 AM
[2024-02-17 11:57] VITALS: BP 120/78; PULSE 68; RESP 18; TEMP 97.2
== END 2024-02-17 11:57 | disposition home or self-care (01) ==
LOC: EC 09:39
DX: M25.512 Pain in left shoulder (principal); Z91.040 Latex allergy status; Z91.09 Other allergy status, other than to drugs and biological substances; Z87.891 Personal history of nicotine dependence; W01.0XXA Fall on same level from slipping, tripping and stumbling without subsequent striking against object, initial encounter
CPT/HCPCS: 73030; 71046; 99283; 96372; J1885

== ENCOUNTER → 2024-04-25 | Day surgery (SDC) | payer BC, OTHER ==
[2024-04-25 09:02] VITALS: RESP 16; TEMP 98.8
[2024-04-25] MEDS: SODIUM CHLORIDE 0.9% 250 ML IV ONE ×2 (09:08→10:47)
[2024-04-25] MEDS: fentaNYL (PF) 50 MCG/ML 2 ML AMP IVP ONE (10:46)
[2024-04-25] MEDS: MIDAZOLAM 2 MG/2 ML VIAL IVP ONE (10:46)
[2024-04-25] MEDS: LIDOCAINE 1% INJ 10MG/ML (20 ML MDV) SQ ONE (10:48)
[2024-04-25 11:55] VITALS: BP 116/71; PULSE 60
--- NOTE | 2024-04-25 13:39 | P.PCN ---
Description of Procedure: Procedure: Linq loop recorder extraction Indication: HARJIT, patient desire to have device removed CONSENT:I have discussed the risks, benefits and alternative therapies for the above-mentioned procedure. The patient has indicated understanding and acceptance of the risks and procedures discussed. PROCEDURE: Patient was brought to the catheterization lab in a fasting state. Patient was prepped and draped in the usual fashion. 1% lidocaine was used to anesthetize the area over the Linq loop recorder. Using an 11 blade, a small 0.5 cm incision was made immediately over the loop recorder site. Using hemostat, the loop recorder was grabbed and extracted without difficulty. Next the incision was closed using Dermabond. Steristrips were placed over the incision and the procedure was completed. The patient tolerated the procedure well. The patient was transported to the post cath holding area in stable condition.
== END ==
LOC: CATHEP 08:39
PROVIDERS: ATTEND Internal Medicine
DX: Z45.09 Encounter for adjustment and management of other cardiac device (principal); R06.09 Other forms of dyspnea; J44.9 Chronic obstructive pulmonary disease, unspecified; F41.9 Anxiety disorder, unspecified; F17.210 Nicotine dependence, cigarettes, uncomplicated; F10.90 Alcohol use, unspecified, uncomplicated; F12.90 Cannabis use, unspecified, uncomplicated; Z91.040 Latex allergy status; Z88.8 Allergy status to other drugs, medicaments and biological substances
CPT/HCPCS: 33286; J2250; J0690; J2003; J3010

== ENCOUNTER → 2024-06-05 | Day surgery (SDC) | payer BC, OTHER ==
[2024-06-05] MEDS: IV FLUID CONTINUATION 1,000 ML IV ONE (06:29)
[2024-06-05] MEDS: SODIUM CHLORIDE 0.9% 1,000 ML IV SCH (06:29)
[2024-06-05 06:33] VITALS: BP 123/64; PULSE 62; RESP 14; TEMP 98.1
--- NOTE | 2024-06-05 16:53 | P.EPPROC ---
- EP Procedure Note Electrophysiology Procedure Note: Diagnosis: Syncope, recurrent Twelve-lead EKG shows sinus rhythm normal DC narrow QRS early reposition abnormality normal QT interval heart rate 48 beats a minute Tilt table test per protocol Baseline blood pressure 112/75 mmHg pulse rate 51 beats a minute Patient was tilted upright from angle of 70 degrees per protocol No significant change in heart rate blood pressure Occasionally she felt dizzy and occasionally she complained of tiredness but without any hemodynamic changes No evidence for neurocardiogenic syncope or orthostatic intolerance She was laid supine the end of the procedure Impression normal heart rate and blood pressure response to upright tilting 12 EKG with early repolarization abnormality normal QT interval heart rate 48 beats a minute
== END ==
LOC: CATHEP 05:53
PROVIDERS: ATTEND Internal Medicine Clinical Cardiac Electrophysiology
DX: R55 Syncope and collapse (principal); G40.909 Epilepsy, unspecified, not intractable, without status epilepticus; F17.200 Nicotine dependence, unspecified, uncomplicated; J44.9 Chronic obstructive pulmonary disease, unspecified; R00.1 Bradycardia, unspecified; Z79.51 Long term (current) use of inhaled steroids
CPT/HCPCS: 93660

== ENCOUNTER 2024-06-11 10:41 | Emergency (ER) | payer BC, OTHER ==
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
--- NOTE | 2024-06-11 11:31 | XR ---
EXAMINATION TYPE: XR ribs LT w pa chest xray DATE OF EXAM: 06/11/2024 11:27 AM INDICATION: Patient age:Female; 48 years old; Reason for study: pain; PHH. pain COMPARISON: Chest radiograph 02/17/2024, CT chest 09/02/2023. TECHNIQUE: Frontal and oblique views of the left. Additional PA chest radiograph. FINDINGS: The ribs have a normal appearance. No evidence of fracture. Overall, the lungs are clear. The cardiac silhouette is normal in size. The remaining osseous structures are intact. IMPRESSION: No acute osseous pathology. [facility], , 06/11/2024 11:29 AM
[2024-06-11 12:25] VITALS: BP 105/72; PULSE 72; RESP 18; TEMP 98.1
== END 2024-06-11 12:25 | disposition home or self-care (01) ==
LOC: EC 10:41
DX: S16.1XXA Strain of muscle, fascia and tendon at neck level, initial encounter (principal); S20.212A Contusion of left front wall of thorax, initial encounter; S09.90XA Unspecified injury of head, initial encounter; Z86.73 Personal history of transient ischemic attack (TIA), and cerebral infarction without residual deficits; F17.200 Nicotine dependence, unspecified, uncomplicated; Z91.040 Latex allergy status; Z88.8 Allergy status to other drugs, medicaments and biological substances; Y04.8XXA Assault by other bodily force, initial encounter
CPT/HCPCS: 70450; 72125; 93005; 99284

== ENCOUNTER → 2024-07-26 | Outpatient (CLI) | payer BC, OTHER ==
--- NOTE | 2024-07-26 13:34 | FL ---
EXAMINATION TYPE: FL barium swallow w video DATE OF EXAM: 07/26/2024 MODIFIED SWALLOW / DEGLUTITION STUDY CLINICAL HISTORY: Dysphagia. Dystonia. History of bronchitis. Food/liquid getting stuck per patient. TECHNIQUE: Deglutition study is performed utilizing thin liquid barium, barium thick pudding, and ba rium coated cracker. 1 minute 21 seconds of fluoro time and 17 images obtained. Total dose area pr oduct (DAP) in uGy*m?, mGy*cm? (or similar): n/p COMPARISON: None. FINDINGS: The oral and pharyngeal phases show satisfactory initiation and propagation with all modali ties tested. Satisfactory mastication is seen with solid modalities tested. There is no evidence of penetration or aspiration with any modality tested. No significant pharyngeal residue was appreciate d. Towards end of study there is noted esophageal dysmotility and pooling of ingested material in the mid to distal esophagus. Further evaluation and follow-up advised IMPRESSION: No aspiration identified. Please refer to speech therapist notes for further details if necessary. Underlying esophageal dysmotility is present. Possible achalasia. Advise further investigation with a GI specialist referral. Consider esophagram and/or endoscopy evaluation to further evaluate. [facility], , 07/26/2024 1:32 PM
== END | disposition home or self-care (01) ==
LOC: RADFLMAIN 11:57
PROVIDERS: ATTEND Internal Medicine Critical Care Medicine
DX: K22.4 Dyskinesia of esophagus (principal); R49.0 Dysphonia
CPT/HCPCS: 74230

== ENCOUNTER 2024-09-01 17:17 | Emergency (ER) | payer BC, OTHER ==
[2024-09-01 17:22] VITALS: TEMP 97.7
--- NOTE | 2024-09-01 18:24 | ED ---
Nausea/Vomiting/Diarrhea HPI - General Chief complaint: Nausea/Vomiting/Diarrhea Stated complaint: NVD Time Seen by Provider: 09/01/24 18:22 Source: patient, RN notes reviewed Mode of arrival: ambulatory Limitations: no limitations - History of Present Illness Initial comments: 48-year-old female presenting for nausea/vomiting/diarrhea x 1 day. Reports vomiting and diarrhea started suddenly in the middle the night last night. Reports improvement of symptoms today however reports fatigue and mild nausea. Reports abdominal pain in the lower abdomen associated with the diarrhea. Denies fevers, chills. Denies history of abdominal surgeries. - Related Data Home Medications Medication Instructions Recorded Confirmed Ibuprofen [Motrin Ib] 800 mg PO Q8H PRN 11/04/20 06/01/24 Albuterol Inhaler [Ventolin Hfa 1 - 2 puff INHALATION Q4HR PRN 04/21/24 06/01/24 Inhaler] FLUoxetine HCL 40 mg PO DAILY 04/21/24 06/05/24 Montelukast [Singulair] 10 mg PO HS 04/21/24 06/05/24 Meclizine [Antivert] 25 mg PO BID PRN 06/01/24 06/05/24 OXcarbazepine [Trileptal] 300 mg PO BID 06/01/24 06/05/24 SUMAtriptan succinate [Imitrex] 50 mg PO ONCE PRN 06/01/24 06/05/24 Previous Rx's Medication Instructions Recorded Ketorolac [Toradol] 10 mg PO Q8HR #15 tab 02/17/24 Ibuprofen [Motrin] 600 mg PO Q8HR PRN #20 tab 06/11/24 Allergies Allergy/AdvReac Type Severity Reaction Status Date / Time adhesive Allergy Rash/Hives Verified 09/01/24 17:21 latex Allergy Rash/Hives Verified 09/01/24 17:21 Review of Systems ROS Statement: Those systems with pertinent positive or pertinent negative responses have been documented in the HPI. ROS Other: All systems not noted in ROS Statement are negative. Past Medical History Past Medical History: Asthma, Chest Pain / Angina, COPD, CVA/TIA, Liver Disease, Respiratory Disorder, Seizure Disorder, Sleep Apnea/CPAP/BIPAP, Syncope Additional Past Medical History / Comment(s): hx vertigo, last seizure 5 weeks ago, last syncope summer 2023, chronic bronchitis since 2022, SOB & fatigue with activity. 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 Needs extra meds to stay down. Takes long to come out of anesthesia. Past Psychological History: Anxiety, Panic Disorder Smoking Status: Current every day smoker Past Alcohol Use History: None Reported Past Drug Use History: None Reported - Past Family History Mother Family Medical History: Asthma, COPD, Hypertension, Seizure Disorder Additional Family Medical History / Comment(s): Scolosis, alcoholism Father Family Medical History: No Reported History Additional Family Medical History / Comment(s): alcoholism General Exam Limitations: no limitations General appearance: alert, in no apparent distress Head exam: Present: atraumatic, normocephalic, normal inspection Eye exam: Present: normal appearance, PERRL, EOMI. Absent: scleral icterus, conjunctival injection, periorbital swelling Respiratory exam: Present: normal lung sounds bilaterally. Absent: respiratory distress, wheezes, rales, rhonchi, stridor Cardiovascular Exam: Present: regular rate, normal rhythm, normal heart sounds. Absent: systolic murmur, diastolic murmur, rubs, gallop, clicks GI/Abdominal exam: Present: soft, normal bowel sounds. Absent: distended, tenderness, guarding, rebound, rigid Back exam: Absent: CVA tenderness (R), CVA tenderness (L) Neurological exam: Present: alert, oriented X3 Psychiatric exam: Present: normal affect, normal mood Skin exam: Present: warm, dry, intact, normal color. Absent: rash Course Vital Signs 09/01/24 17:18 Temperature 97.7 F Pulse Rate 50 L Respiratory 16 Rate Blood Pressure 111/66 O2 Sat by Pulse 98 Oximetry Medical Decision Making - Medical Decision Making Was pt. sent in by a medical professional or institution (, PA, LABEL DRIER, urgent care, hospital, or senior care...) When possible be specific @ -No Did you speak to anyone other than the patient for history (EMS, parent, family, police, friend...)? What history was obtained from this source @ -No Did you review nursing and triage notes (agree or disagree)? Why? @ -I reviewed and agree with nursing and triage notes Were old charts reviewed (outside hosp., previous admission, EMS record, old EKG, old radiological studies, urgent care reports/EKG's, senior care records)? Report findings @ -No old charts were reviewed Differential Diagnosis (chest pain, altered mental status, abdominal pain women, abdominal pain men, vaginal bleeding, weakness, fever, dyspnea, syncope, headache, dizziness, GI bleed, back pain, seizure, CVA, palpatations, mental health, musculoskeletal)? @ -Differential Abdominal Pain Women: Appendicitis, Cholecystitis, diverticulosis, ischemic bowel, pancreatitis, hepatitis, UTI, gastroenteritis, AAA, incarcerated hernia, bowel obstruction, constipation, inflammatory bowel, hepatitis, peptic ulcer disease, splenic infarction, perforated viscus, vulvitis, ovarian torsion, PID, kidney stone, placenta abruption, this is not meant to be an all-inclusive list EKG interpreted by me (3pts min.). @ -None X-rays interpreted by me (1pt min.). @ -None done CT interpreted by me (1pt min.). @ -CT abdomen pelvis reveals may be some mild diffuse wall thickening within the sigmoid colon U/S interpreted by me (1pt. min.). @ -None done What testing was considered but not performed or refused? (CT, X-rays, U/S, labs)? Why? @ -None What meds were considered but not given or refused? Why? @ -None Did you discuss the management of the patient with other professionals (professionals i.e. Dr., PA, LABEL DRIER, lab, RT, psych nurse, rn social work, buffet runner, teacher, personal banking officer, human services case manager)? Give summary @ -No Was smoking cessation discussed for >3mins.? @ -No Was critical care preformed (if so, how long)? @ -No Were there social determinants of health that impacted care today? How? (Homelessness, low income, unemployed, alcoholism, drug addiction, transportation, low edu. Level, literacy, decrease access to med. care, senior care, rehab)? @ -No Was there de-escalation of care discussed even if they declined (Discuss DNR or withdrawal of care, Hospice)? DNR status @ -No What co-morbidities impacted this encounter? (DM, HTN, Smoking, COPD, CAD, Cancer, CVA, ARF, Chemo, Hep., AIDS, mental health diagnosis, sleep apnea, morbid obesity)? @ -None Was patient admitted / discharged? Hospital course, mention meds given and route, prescriptions, significant lab abnormalities, going to OR and other pertinent info. @ -Discharge. 48-year-old female presenting for nausea/vomiting/diarrhea x 1 day. Reports symptoms are overall improving. Patient is well-appearing, no acute distress. Abdomen soft and nonsurgical. Provided with IV fluids, Zofran, and Toradol for supportive care. Lab work remarkable for leukocytosis of 16, lactic acid 1.2. Urinalysis is contaminated sample with trace ketones and 1+ protein. Decision was made to order CT abdomen pelvis due to leukocytosis with abdominal pain and revealed mild diffuse wall thickening within the sigmoid colon. Discussed results with patient. Discussed diagnosis of gastroenteritis. Appropriate return precautions and supportive care discussed. Case was discussed with my ED attending Dr. Benavides. Undiagnosed new problem with uncertain prognosis? @ -No Drug Therapy requiring intensive monitoring for toxicity (Heparin, Nitro, Insulin, Cardizem)? @ -No Were any procedures done? @ -No Diagnosis/symptom? @ -Gastroenteritis Acute, or Chronic, or Acute on Chronic? @ -Acute Uncomplicated (without systemic symptoms) or Complicated (systemic symptoms)? @ -Complicated Side effects of treatment? @ -No Exacerbation, Progression, or Severe Exacerbation? @ -No Poses a threat to life or bodily function? How? (Chest pain, USA, MS, pneumonia, PE, COPD, DKA, ARF, appy, cholecystitis, CVA, Diverticulitis, Homicidal, Suic idal, threat to staff... and all critical care pts) @ -No - Lab Data Result diagrams: 09/01/24 18:31 09/01/24 18:31 Lab Results 09/01/24 09/01/24 09/01/24 Range/Units 18:31 18:31 18:31 WBC 16.05 H (4.50-10.00) 10*3/uL RBC 3.91 L (4.10-5.20) 10*6/uL Hgb 12.7 (12.0-15.0) g/dL Hct 36.9 L (37.2-46.3) % MCV 94.4 (80.0-97.0) fL MCH 32.5 H (27.0-32.0) pg MCHC 34.4 (32.0-37.0) g/dL Plt Count 262 (140-440) 10*3/uL MPV 10.7 (9.5-12.2) fL Immature Gran % (Auto) 0.3 % Neutrophils % 92.9 % Lymphocytes % 4.9 % Monocytes % 1.7 % Eosinophils % 0.0 % Basophils % 0.2 % Immature Gran # 0.05 H (0.00-0.04) 10*3/uL Neutrophils # 14.90 H (1.80-7.70) 10*3/uL Lymphocytes # 0.79 L (0.90-5.00) 10*3/uL Monocytes # 0.28 (0.20-1.00) 10*3/uL Eosinophils # 0.00 L (0.04-0.35) 10*3/uL Basophils # 0.03 (0.00-0.10) 10*3/uL Sodium 139 (137-145) mmol/L Potassium 4.6 (3.5-5.1) mmol/L Chloride 109 H (98-107) mmol/L Carbon Dioxide 23 (22-30) mmol/L Anion Gap 7 mmol/L BUN 17 (7-17) mg/dL Creatinine 0.37 L (0.52-1.04) mg/dL Est GFR (CKD-EPI)AfAm >90 (>60 ml/min/1.73 sqM) Est GFR (CKD-EPI)NonAf >90 (>60 ml/min/1.73 sqM) Glucose 104 H (74-99) mg/dL Plasma Lactic Acid Breezy 1.2 (0.7-2.0) mmol/L Calcium 9.6 (8.4-10.2) mg/dL Total Bilirubin 0.9 (0.2-1.3) mg/dL AST 32 (14-36) U/L ALT 17 (4-34) U/L Alkaline Phosphatase 57 (38-126) U/L Total Protein 6.7 (6.3-8.2) g/dL Albumin 4.4 (3.5-5.0) g/dL Lipase 18 L (23-300) U/L Urine Color Urine Appearance (Clear) Urine pH (5.0-8.0) Ur Specific [place] (1.001-1.035) Urine Protein (Negative) Urine Glucose (UA) (Negative) Urine Ketones (Negative) Urine Blood (Negative) Urine Nitrite (Negative) Urine Bilirubin (Negative) Urine Urobilinogen (<2.0) mg/dL Ur Leukocyte Esterase (Negative) Urine RBC (0-5) /hpf Urine WBC (0-5) /hpf Ur Squamous Epith Cells (0-4) /hpf Urine Mucus (None) /hpf Urine HCG, Qual (Not Detectd) 09/01/24 09/01/24 Range/Units 18:42 18:42 WBC (4.50-10.00) 10*3/uL RBC (4.10-5.20) 10*6/uL Hgb (12.0-15.0) g/dL Hct (37.2-46.3) % MCV (80.0-97.0) fL MCH (27.0-32.0) pg MCHC (32.0-37.0) g/dL Plt Count (140-440) 10*3/uL MPV (9.5-12.2) fL Immature Gran % (Auto) % Neutrophils % % Lymphocytes % % Monocytes % % Eosinophils % % Basophils % % Immature Gran # (0.00-0.04) 10*3/uL Neutrophils # (1.80-7.70) 10*3/uL Lymphocytes # (0.90-5.00) 10*3/uL Monocytes # (0.20-1.00) 10*3/uL Eosinophils # (0.04-0.35) 10*3/uL Basophils # (0.00-0.10) 10*3/uL Sodium (137-145) mmol/L Potassium (3.5-5.1) mmol/L Chloride (98-107) mmol/L Carbon Dioxide (22-30) mmol/L Anion Gap mmol/L BUN (7-17) mg/dL Creatinine (0.52-1.04) mg/dL Est GFR (CKD-EPI)AfAm (>60 ml/min/1.73 sqM) Est GFR (CKD-EPI)NonAf (>60 ml/min/1.73 sqM) Glucose (74-99) mg/dL Plasma Lactic Acid Breezy (0.7-2.0) mmol/L Calcium (8.4-10.2) mg/dL Total Bilirubin (0.2-1.3) mg/dL AST (14-36) U/L ALT (4-34) U/L Alkaline Phosphatase (38-126) U/L Total Protein (6.3-8.2) g/dL Albumin (3.5-5.0) g/dL Lipase (23-300) U/L Urine Color Yellow Urine Appearance Cloudy H (Clear) Urine pH 6.0 (5.0-8.0) Ur Specific [place] 1.026 (1.001-1.035) Urine Protein 1+ H (Negative) Urine Glucose (UA) Trace H (Negative) Urine Ketones Trace H (Negative) Urine Blood Negative (Negative) Urine Nitrite Negative (Negative) Urine Bilirubin Negative (Negative) Urine Urobilinogen <2.0 (<2.0) mg/dL Ur Leukocyte Esterase Negative (Negative) Urine RBC 2 (0-5) /hpf Urine WBC 4 (0-5) /hpf Ur Squamous Epith Cells 14 H (0-4) /hpf Urine Mucus Moderate H (None) /hpf Urine HCG, Qual Not Detected (Not Detectd) Disposition Clinical Impression: Gastroenteritis Disposition: HOME SELF-CARE Condition: Stable Instructions (If sedation given, give patient instructions): Gastroenteritis (ED) Additional Instructions: Take Zofran as needed for nausea. Please return to the Emergency Department if symptoms worsen or any other concerns. Is patient prescribed a controlled substance at d/c from ED?: No Referrals: Alvin Aguiar MD [Primary Care Provider] - 1-2 days Time of Disposition: 21:10
[2024-09-01 18:41] LABS: Basophils # (A) 0.03 10*3/uL (0.00-0.10); Basophils % (A) 0.2 %; HCT 36.9 % (37.2-46.3); HGB 12.7 g/dL (12.0-15.0); Lymphocytes # (A) 0.79 10*3/uL (0.90-5.00); Lymphocytes % (A) 4.9 %; MCH 32.5 pg (27.0-32.0); MCHC 34.4 g/dL (32.0-37.0); MCV 94.4 fL (80.0-97.0); Mean Platelet Volume 10.7 fL (9.5-12.2); Monocytes # (A) 0.28 10*3/uL (0.20-1.00); Monocytes % (A) 1.7 %; Neutrophils % (A) 92.9 %; Platelet Count 262 10*3/uL (140-440); RBC 3.91 10*6/uL (4.10-5.20); WBC 16.05 10*3/uL (4.50-10.00)
[2024-09-01] MEDS: SODIUM CHLORIDE 0.9% 1,000 ML IV STA (18:53)
[2024-09-01] MEDS: ONDANSETRON 4 MG/2 ML VIAL IVP STA (18:53)
[2024-09-01 18:59] LABS: Anion Gap 7 mmol/L; Blood Urea Nitrogen 17 mg/dL (7-17); Carbon Dioxide 23 mmol/L (22-30); Chloride 109 mmol/L (98-107); Glucose 104 mg/dL (74-99); Potassium 4.6 mmol/L (3.5-5.1)
[2024-09-01 19:00] LABS: ALT 17 U/L (4-34); African American GFR (CKD) >90 (>60 ml/min/1.73 sqM); Calcium 9.6 mg/dL (8.4-10.2); Lipase 18 U/L (23-300); Non-African American GFR(CKD) >90 (>60 ml/min/1.73 sqM); Total Bilirubin 0.9 mg/dL (0.2-1.3)
[2024-09-01] MEDS: KETOROLAC 15 MG/ML 1 ML VIAL IVP STA (19:05)
[2024-09-01 19:07] LABS: Appearance,Urine Cloudy (Clear); Bilirubin,Urine Negative (Negative); Blood,Urine Negative (Negative); Color,Urine Yellow; Glucose,Urine (UA) Trace (Negative); Ketones,Urine Trace (Negative); Leukocyte Esterase,Urine Negative (Negative); Mucus,Urine Moderate /hpf; Nitrite,Urine Negative (Negative); Protein,Urine 1+ (Negative); RBC,Urine 2 /hpf (0-5); Specific Gravity,Urine 1.026 (1.001-1.035); Squamous Epithelial Cell,Urine 14 /hpf (0-4); Urobilinogen,Urine <2.0 mg/dL (<2.0); WBC,Urine 4 /hpf (0-5)
[2024-09-01 19:07] LABS: Sodium 139 mmol/L (137-145); Total Protein 6.7 g/dL (6.3-8.2)
[2024-09-01 19:08] LABS: AST 32 U/L (14-36); Albumin 4.4 g/dL (3.5-5.0); Alkaline Phosphatase 57 U/L (38-126)
--- NOTE | 2024-09-01 20:38 | CT ---
EXAMINATION TYPE: CT abdomen pelvis w con DATE OF EXAM: 09/01/2024 7:44 PM COMPARISON: None. CLINICAL INDICATION: Female, 48 years old with history of Abdominal pain, acute, nonlocalized, nausea , vomiting, diarrhea, pain TECHNIQUE: Axial images were obtained from above the diaphragm to the pubic rami in the axial plane a t 5 mm thick sections. Reconstructed images are reviewed on the computer in the coronal plane. CONTRAST: 100 mL of Isovue 300. Study performed without Oral Contrast DLP: 518.9 mGycm, Automated exposure control for dose reduction was used. FINDINGS: Limited CT sections are obtained the lung bases. The lung bases are clear. CT ABDOMEN: Liver: Normal Spleen: Normal Pancreas: Normal Adrenal glands: The adrenal glands are normal. Gallbladder: Normal Kidneys: No masses are evident. No hydronephrosis is present. Tiny cortical renal cyst is on the mi d lateral left right kidney. Delayed images were obtained through the kidneys, which remain unremark able. Aorta: Vascular calcification is within the aorta. Inferior vena cava: Normal. CT PELVIS: Loops of bowel within the abdomen and pelvis are normal. Mild wall thickening through the sigmoid co gladis appears to be present. No adjacent inflammatory changes or significant diverticuli evident. Consi kodi mild colitis this region. This study is without neural contrast limits evaluation. Appendix: Normal as visualized. Urinary bladder: Normal. Genitourinary structures: Uterus and adnexa appear normal. Osseous structures: No suspicious lytic or sclerotic lesions. IMPRESSION: 1. May be some mild diffuse wall thickening within the sigmoid colon. Consider mild colitis. [facility], , 09/01/2024 8:35 PM
[2024-09-01] MEDS: ONDANSETRON 4 MG ODT STARTER PACK 2 TAB BTL PO STA (21:15)
[2024-09-01 21:22] VITALS: BP 108/69; PULSE 88; RESP 17
== END 2024-09-01 21:22 | disposition home or self-care (01) ==
LOC: EC 17:17
DX: K52.9 Noninfective gastroenteritis and colitis, unspecified (principal); F17.200 Nicotine dependence, unspecified, uncomplicated; Z91.040 Latex allergy status; Z91.09 Other allergy status, other than to drugs and biological substances; Z86.73 Personal history of transient ischemic attack (TIA), and cerebral infarction without residual deficits
CPT/HCPCS: 36415; 80053; 83605; 83690; 85025; 81001; 81025; 74177; 99284; 96374; 96375; 96361 ×2; J2405; J1885; S0119; Q9967